=== PATIENT | female | born 1955 | race Caucasian/White ===

== ENCOUNTER → 2017-08-17 11:45 | Outpatient (CLI) | payer OTHER, SELFPAY ==
[2017-08-17 12:41] LABS: Absolute Lymphocyte Count 1.69 X10^3/ul (0.83-4.51); Absolute Neutrophil Count 2.6 X10^3/uL (2.0-7.7); Basophil# 0.05 X10^3/uL; Eosinophil# 0.15 X10^3/uL; Hematocrit 38.4 % (37-47); Hemoglobin 12.9 g/dl (12.0-15.0); Lymphocyte # 1.69 X10^3/ul (4.0); Lymphocyte % 33.9 % (19-41); Mean Corp Hgb Conc 33.6 g/gl (32-36); Mean Corpuscular Hgb 30.5 pg (27.0-32.0); Mean Corpuscular Volume 90.8 fL (81-99); Mean Platelet Vol. 11.2 fl (6.2-12.0); Monocyte# 0.45 X10^3/uL; Neutrophil # 2.64 X10^3/uL (2.7-7.7); Neutrophil % 53.1 % (47-70); Platelet Count 193 K/mm3 (150-450); RBC Distribution Width CV 13.9 % (11.6-14.6); RBC Distribution Width SD 45.6 fl (35.1-43.9); Red Blood Count 4.23 M/mm3 (4.2-5.4)
[2017-08-17 12:42] LABS: POSITIVE COUNT NO; POSITIVE DIFFERENTIAL NO; POSITIVE MORPHOLOGY NO
[2017-08-17 13:10] LABS: ALB/GLOB Ratio 1.1 RATIO (0.9-2.4); AST(SGOT) 22 U/L (15-37); Alanine Aminotransfer ALT/SGPT 27 U/L (13-56); Albumin, Serum 3.9 g/dL (3.2-5.0); Alkaline Phosphatase 80 U/L (45-117); Anion Gap 6 (5-15); BUN 13 mg/dL (7-18); BUN/Creat Ratio 17.1 RATIO (10-20); Calcium,Total 8.9 mg/dL (8.5-10.1); Chloride 103 mmol/L (98-107); Cholesterol 220 mg/dL (200); Creatinine, Serum 0.76 mg/dL (0.55-1.02); EST Glomerular Filtration Rate 81 mL/min (>60); Est Glom Filt Rate - Afr Amer 99 mL/min (>60); Globulin 3.4 g/dL (2.2-4.2); Glucose 101 mg/dL (74-106); High Density Lipoprotein 89 mg/dL; Protein, Total 7.3 g/dL (6.4-8.2); Sodium Level 138 mmol/L (136-145); Triglycerides 64 mg/dL; Very Low Density Lipoprotein 13 mg/dL (5-40)
== END ==
PROVIDERS: Family Provider Family Medicine; PCP Family Medicine; Visit Provider Family Medicine
DX: E78.5 Hyperlipidemia, unspecified (principal)
CPT/HCPCS: 36415; 80053; 80061; 85025

== ENCOUNTER → 2018-06-02 12:01 | Outpatient (CLI) | payer OTHER, SELFPAY ==
--- NOTE | 2018-06-02 12:06 | RAD_ITS ---
STUDY: X-RAY CHEST REASON FOR EXAM: Female, 62 years old. Cough, fever, cold like symptoms x1 week. TECHNIQUE: PA and lateral views of the chest. COMPARISON: None. FINDINGS: There is ill-defined consolidated pneumonic infiltrate in the lingula of left upper lobe. Possible slight crowding in the medial right lung base. There is no demonstrated pleural abnormality. Normal size heart. Normal mediastinum and heron. Normal visualized pulmonary arteries. There is minor atherosclerotic calcification of the aortic arch. There are early degenerative changes of the head thoracic spine. Normal visualized ribs, clavicles, and shoulders. There is no demonstrated abnormality of the visualized soft tissue structures of the upper abdomen. RAD/Chest PA and Lateral IMPRESSION: Lingular pneumonic infiltrate. Electronically Signed: Eleuterio Matamoros, at 12:53 EST , Service support ,
[2018-06-02 14:13] LABS: Absolute Lymphocyte Count 0.96 X10^3/ul (0.83-4.51); Absolute Neutrophil Count 5.2 X10^3/uL (2.0-7.7); Basophil# 0.02 X10^3/uL; Basophil% 0.3 % (0-1); Eosinophil# 0.02 X10^3/uL; Eosinophils% 0.3 % (0-5); Hematocrit 36.6 % (37-47); Hemoglobin 11.7 g/dl (12.0-15.0); Lymphocyte # 0.96 X10^3/ul (4.0); Lymphocyte % 14.3 % (19-41); Mean Corpuscular Hgb 28.8 pg (27.0-32.0); Mean Corpuscular Volume 90.1 fL (81-99); Mean Platelet Vol. 11.3 fl (6.2-12.0); Monocyte# 0.55 X10^3/uL; Monocyte% 8.2 % (0-10); Neutrophil # 5.17 X10^3/uL (2.7-7.7); Neutrophil % 76.8 % (47-70); Platelet Count 203 K/mm3 (150-450); RBC Distribution Width SD 42.6 fl (35.1-43.9); Red Blood Count 4.06 M/mm3 (4.2-5.4); White Blood Count 6.7 K/mm3 (4.4-11.0)
[2018-06-02 14:14] LABS: POSITIVE COUNT NO; POSITIVE DIFFERENTIAL NO; POSITIVE MORPHOLOGY NO
== END ==
PROVIDERS: Family Provider Family Medicine; PCP Family Medicine; Referring Provider Family Medicine; Visit Provider Family Medicine
DX: R05 Cough (principal)
CPT/HCPCS: 36415; 71046; 85025

== ENCOUNTER → 2018-10-13 09:34 | Outpatient (CLI) | payer MEDICARE, BC, SELFPAY ==
[2018-10-13 12:14] LABS: Absolute Lymphocyte Count 1.61 X10^3/ul (0.83-4.51); Absolute Neutrophil Count 3.1 X10^3/uL (2.0-7.7); Basophil# 0.03 X10^3/uL; Basophil% 0.6 % (0-1); Eosinophil# 0.08 X10^3/uL; Eosinophils% 1.5 % (0-5); Hematocrit 40.4 % (37-47); Hemoglobin 13.1 g/dl (12.0-15.0); Lymphocyte # 1.61 X10^3/ul (4.0); Lymphocyte % 30.6 % (19-41); Mean Corp Hgb Conc 32.4 g/gl (32-36); Mean Corpuscular Volume 89.6 fL (81-99); Mean Platelet Vol. 11.8 fl (6.2-12.0); Monocyte# 0.44 X10^3/uL; Monocyte% 8.4 % (0-10); Neutrophil % 58.9 % (47-70); Platelet Count 201 K/mm3 (150-450); RBC Distribution Width CV 13.9 % (11.6-14.6); RBC Distribution Width SD 45.2 fl (35.1-43.9); Red Blood Count 4.51 M/mm3 (4.2-5.4); White Blood Count 5.3 K/mm3 (4.4-11.0)
[2018-10-13 12:18] LABS: POSITIVE COUNT NO; POSITIVE DIFFERENTIAL NO; POSITIVE MORPHOLOGY NO
[2018-10-13 12:46] LABS: AST(SGOT) 18 U/L (15-37); Alanine Aminotransfer ALT/SGPT 29 U/L (13-56); Albumin, Serum 3.8 g/dL (3.2-5.0); Alkaline Phosphatase 101 U/L (45-117); Anion Gap 8 (5-15); BUN 13 mg/dL (7-18); BUN/Creat Ratio 15.6 RATIO (10-20); CRP 8.85 mg/L (0.0-3.0); Calcium,Total 9.2 mg/dL (8.5-10.1); Chloride 103 mmol/L (98-107); Cholesterol 193 mg/dL (200); Creatinine, Serum 0.84 mg/dL (0.55-1.02); EST Glomerular Filtration Rate 73 mL/min (>60); Est Glom Filt Rate - Afr Amer 88 mL/min (>60); Ferritin 52 ng/mL (8-252); Globulin 3.9 g/dL (2.2-4.2); Glucose 112 mg/dL (74-106); High Density Lipoprotein 73 mg/dL; Iron 59 ug/dL (50-170); Potassium 4.2 mmol/L (3.5-5.1); Protein, Total 7.7 g/dL (6.4-8.2); Rheumatoid Factor < 10.0 IU/mL (<15); Sodium Level 138 mmol/L (136-145); T4 Free Direct 1.03 ng/dL (0.76-1.46); Thyroid Stim Hormone (TSH) 1.47 uIU/mL (0.358-3.74); Triglycerides 76 mg/dL; Very Low Density Lipoprotein 15 mg/dL (5-40)
[2018-10-13 12:50] LABS: Erythrocyte Sedimentation Rate 28 mm/hr (0-30)
[2018-10-13 12:52] LABS: Vitamin B12 463 pg/mL (211-911)
[2018-10-14 09:34] LABS: Hemoglobin A1c 6.2 % (4.2-6.3)
[2018-10-14 17:16] LABS: ANTINUCLEAR ANTIBODIES DIRECT Positive (Negative); Anti-Centromere B Ab 1.9 AI (0.0-0.9); Anti-Chromatin <0.2 AI (0.0-0.9); Anti-Jo <0.2 AI (0.0-0.9); Anti-Scleroderma-70 AB <0.2 AI (0.0-0.9); RNP Ab <0.2 AI (0.0-0.9); SJOGREN'S Anti-SS-A test < 0.2 AI (0.0-0.9); SJOGREN'S Anti-SS-B test < 0.2 AI (0.0-0.9); Smith Ab <0.2 AI (0.0-0.9)
[2018-10-18 12:49] LABS: Anti-dsDNA Ab 7 IU/mL (0-9)
[2018-10-18 12:51] LABS: CCP IgG Antibodies 5 units (0-19)
== END ==
PROVIDERS: Family Provider Family Medicine; PCP Family Medicine; Visit Provider Family Medicine
DX: R06.09 Other forms of dyspnea (principal); R05 Cough; M25.50 Pain in unspecified joint; E78.5 Hyperlipidemia, unspecified; I49.9 Cardiac arrhythmia, unspecified; R53.83 Other fatigue; D64.9 Anemia, unspecified
CPT/HCPCS: 36415; 80053; 80061; 82607; 82728; 83036; 83540; 84439; 84443; 85025; 85652; 86038; 86140; 86200; 86225; 86235; 86431

== ENCOUNTER → 2018-10-16 08:45 | Outpatient (CLI) | payer MEDICARE, BC, SELFPAY ==
--- NOTE | 2018-10-16 09:08 | CT_ITS ---
STUDY: LOW DOSE CT LUNG CANCER SCREENING REASON FOR EXAM: Female, 63 years old. 35 pack year smoker quit 2 years ago. RADIATION DOSAGE (If Supplied By Facility): CTDIvol = ( 2.01 ) mGy, DLP = ( 68.71 ) mGycm TECHNIQUE: No contrast was administered. Low dose technique was utilized (average mAS-38 and kVp 120). 1.25 mm axial source images with a slice interval of 1.25-mm were reconstructed in lung windows. 2.5 mm axial source images with a slice interval of 2.5-mm were reconstructed in lung windows. 5.0 mm axial source images with a slice interval of 5.0-mm were reconstructed in soft tissue windows. Nodule measured using lung windows on PACS and/or independent workstation with automated measurement of minimum and maximum diameter. Nodule measurement reported as average diameter rounded to the nearest whole number. Growth is defined as an increase ins size of greater than 1.5 mm. COMPARISON: Chest, June 02, 2018. NODULES: Nodule #: 1 Density: Solid Lung location: Right upper lobe: 1.2 cm from pleura Location in series: Series Number: 2 Image: 54 Size - D1 x D2 mm: 2 x 2 mm: 2 mm average diameter Margin: Smooth Shape: Rounded Calcification: Yes Fat: No Temporal comparison: None Nodule #: 2 Density: Ground glass Lung location: Right upper lobe: 1.1 cm from pleura Location in series: Series Number: 2 Image: 84 Size - D1 x D2 mm: 3 x 3 mm: 3 mm average diameter Margin: Ill-defined Shape: Round Calcification: No Fat: No Temporal comparison: None Nodule #: 3 Density: Solid Lung location: Left upper lobe: 2.4 cm from pleura Location in series: Series Number: 2 Image: 89 Size - D1 x D2 mm: 3 x 3 mm: Normal average diameter Margin: Smooth Shape: Rounded Calcification: No Fat: No Temporal comparison: None Nodule #: 4 Density: Solid Lung location: Left lower lobe: 0.2 cm from pleura Location in series: Series Number: 2 Image: 131 Size - D1 x D2 mm: 5 x 3 mm: 4 mm average diameter Margin: Smooth Shape: Oval Calcification: No Fat: No Temporal comparison: None Total lung nodules (excluding granulomas): 3 Emphysema: Minimal emphysematous changes lungs. There is bandlike atelectasis in the left upper lobe and lingula. Endobronchial lesion: 1 Aorta: Atherosclerotic changes of the thoracic aorta without aneurysm. Coronary arteries: None Heart: Normal Pulmonary artery: Normal Mediastinal nodes: Nonspecific subcentimeter mediastinal lymphadenopathy. Other chest and abdominal findings: There are degenerative changes of the lower thoracic spine. CT/Low Dose CT Lung Screening IMPRESSION: Lung-RADS category 2 - Continue annual screening with LDCT in 12 months. IMPORTANT NOTES FOR USE: ACR Lung-RADS Version 1.0 Assessment Categories Release Date: August 01, 2013 Category: Coded 0-4 bases on nodule(s) with highest degree of suspicion. Negative screen is defined as categories 1 and 2; a positive screen is defined as categories 3 and 4. Category 3 and 4A nodules that are unchanged on interval CT should be coded as category 2, and individuals returned to screening in 12 months. Category 4X: Category 3 or 4 nodules with additional imaging findings that increase the suspicion of lung cancer, such as spiculation, GGN that doubles in size in 1 year, enlarged lymph notes, etc. Category Modifiers: S (significant finding unrelated to lung cancer) and C (prior history of treated lung cancer) may be added to the 0-4 Lung-RADS Electronically Signed: Carlitos Augustin DO at 18:20 EDT Tel [phone], Service support ,
== END ==
PROVIDERS: Family Provider Family Medicine; PCP Family Medicine; Referring Provider Family Medicine
DX: Z87.891 Personal history of nicotine dependence (principal); Z12.2 Encounter for screening for malignant neoplasm of respiratory organs
CPT/HCPCS: G0297

== ENCOUNTER → 2020-03-13 17:35 | Outpatient (CLI) | payer MEDICARE, BC, SELFPAY | PROVIDERS: PCP Family Medicine; Referring Provider Family Medicine; Visit Provider Family Medicine | DX: U07.1 COVID-19 (principal) | CPT/HCPCS: 87635; C9803; U0003 ==

== ENCOUNTER → 2020-07-24 11:32 | Outpatient (CLI) | payer MEDICARE, BC, SELFPAY ==
[2020-07-24 15:49] LABS: Absolute Lymphocyte Count 1.27 X10^3/uL (0.83-4.51); Absolute Neutrophil Count 4.2 X10^3/uL (2.0-7.7); Basophil# 0.05 X10^3/uL; Basophil% 0.8 % (0-1); Eosinophil# 0.09 X10^3/uL; Eosinophils% 1.5 % (0-5); Hematocrit 40.2 % (37-47); Hemoglobin 12.7 g/dL (12.0-15.0); Lymphocyte # 1.27 X10^3/ul (0.83-4.51); Mean Corp Hgb Conc 31.6 g/dL (32-36); Mean Corpuscular Hgb 28.9 pg (27.0-32.0); Mean Corpuscular Volume 91.6 fL (81-99); Monocyte# 0.45 X10^3/uL; Monocyte% 7.4 % (0-10); NRBC Flagged by Analyzer 0 % (0-5); Neutrophil # 4.18 X10^3/uL (2.7-7.7); Platelet Count 210 K/mm3 (150-450); RBC Distribution Width CV 14.6 % (11.6-14.6); RBC Distribution Width SD 48.8 fl (35.1-43.9); Red Blood Count 4.39 M/mm3 (4.2-5.4); White Blood Count 6.1 K/mm3 (4.4-11.0)
[2020-07-24 16:05] LABS: Erythrocyte Sedimentation Rate 36 mm/hr (0-30)
[2020-07-24 16:37] LABS: ALB/GLOB Ratio 1.1 RATIO (0.9-2.4); AST(SGOT) 20 U/L (15-37); Alanine Aminotransfer ALT/SGPT 36 U/L (13-56); Albumin, Serum 3.9 g/dL (3.2-5.0); Alkaline Phosphatase 113 U/L (45-117); Anion Gap 5 (5-15); BUN 10 mg/dL (7-18); BUN/Creat Ratio 13.7 RATIO (10-20); CRP 9.13 mg/L (0.0-3.0); Calcium,Total 9.3 mg/dL (8.5-10.1); Chloride 103 mmol/L (98-107); Creatinine, Serum 0.73 mg/dL (0.55-1.02); EST Glomerular Filtration Rate 85 mL/min (>60); Est Glom Filt Rate - Afr Amer 102 mL/min (>60); Globulin 3.6 g/dL (2.2-4.2); Glucose 100 mg/dL (74-106); Protein, Total 7.5 g/dL (6.4-8.2); Rheumatoid Factor < 10.0 IU/mL (<15); Sodium Level 137 mmol/L (136-145); T4 Free Direct 1.26 ng/dL (0.76-1.46)
[2020-07-26 16:09] LABS: ANTINUCLEAR ANTIBODIES DIRECT Positive (Negative); Anti-Centromere B Ab 2.1 AI (0.0-0.9); Anti-Chromatin <0.2 AI (0.0-0.9); Anti-Jo <0.2 AI (0.0-0.9); Anti-Scleroderma-70 AB <0.2 AI (0.0-0.9); RNP Ab <0.2 AI (0.0-0.9); SJOGREN'S Anti-SS-A test < 0.2 AI (0.0-0.9); SJOGREN'S Anti-SS-B test < 0.2 AI (0.0-0.9); Smith Ab <0.2 AI (0.0-0.9)
[2020-07-26 18:37] LABS: Anti-dsDNA Ab 3 IU/mL (0-9)
[2020-07-27 09:14] LABS: CCP IgG Antibodies 1 units (0-19)
== END ==
PROVIDERS: PCP Family Medicine; Referring Provider Family Medicine; Visit Provider Family Medicine
DX: R00.2 Palpitations (principal); I49.3 Ventricular premature depolarization; R06.09 Other forms of dyspnea; M25.50 Pain in unspecified joint; R76.8 Other specified abnormal immunological findings in serum; I10 Essential (primary) hypertension; R73.03 Prediabetes
CPT/HCPCS: 36415; 80053; 82533; 83036; 84439; 84443; 85025; 85652; 86038; 86140; 86200; 86225; 86235; 86431

== ENCOUNTER → 2020-07-31 10:55 | Outpatient (CLI) | payer MEDICARE, BC, SELFPAY | PROVIDERS: PCP Family Medicine; Referring Provider Family Medicine; Visit Provider Family Medicine | DX: R00.2 Palpitations (principal) | CPT/HCPCS: 93225; 93226 ==

== ENCOUNTER → 2020-08-14 08:08 | Outpatient (CLI) | payer MEDICARE, BC, SELFPAY ==
--- NOTE | 2020-08-14 14:36 | PFTCOMP ---
COMPLETE PULMONARY FUNCTION TEST INTERPRETATION Brief HPI: Patient is a 65 year old female, currently under the care of Dr. Mills, who presents to [facility] for complete pulmonary function tests secondary to diagnosis of dyspnea. Respiratory therapist reports good effort and reproducible results. Interpretation: Forced expiration spirometry shows a moderately severe large airways obstructive ventilatory defect with an FEV1 of 53% predicted. There is a significant bronchodilator response in FVC and FEV1 by strict ATS criteria. Spirograms are of good quality and plateau slowly, indicating slowly emptying areas of the lungs. The respiratory flow volume loop shows decreased expiratory flow rates at all lung volumes consistent with airway obstruction. Lung volumes by body plethysmography show a normal total lung capacity at 4.07 L, 101% predicted. FRC and RV are elevated out of proportion. Lung volume measurements are consistent with air-trapping. Diffusion capacity by carbon monoxide is decreased at 43% predicted. The airway resistance is elevated. No previous pulmonary function tests were available for review. Impression: Partial reversible moderately severe large airways obstructive ventilatory defect, with a symmetric reduction in diffusion capacity, in a pattern consistent with COPD/asthma overlap syndrome
== END ==
PROVIDERS: PCP Family Medicine; Referring Provider Family Medicine; Visit Provider Family Medicine
DX: R06.00 Dyspnea, unspecified (principal)
CPT/HCPCS: 94060; 94726; 94729

== ENCOUNTER → 2021-01-25 13:55 | Outpatient (CLI) | payer MEDICARE, BC, SELFPAY ==
--- NOTE | 2021-01-25 13:57 | ECHOCS_ITS ---
Reason For Study: PHTN Procedure This was a 2D Doppler, Color Flow transthoracic echocardiogram. The study was technically difficult. Contrast injection was performed. Exam performed in department. Left Ventricle Normal LV size. Left ventricular systolic function is normal. The estimated ejection fraction is 55 %. Stage 1 diastolic dysfunction. No regional wall motion abnormalities noted. Right Ventricle Normal RV size. Normal systolic function. Atria Normal left atrium. Normal right atrium. Mitral Valve Normal mitral valve. Mild (1+) eccentric mitral valve insufficiency. Tricuspid Valve Normal tricuspid valve. Unable to estimate RV systolic pressure due to inadequate jet, pulmonary artery pressure probably normal. Pulmonic Valve Normal pulmonic valve. Great Vessels Normal aortic root. The pulmonary artery is normal size. Normal inferior vena cava. Pericardium/Pleural No pericardial effusion. Medication 22 gauge I.V. with prn adaptor inserted into left arm. Diluted definity 5ml given slow IV push to enhance endocardial definition. MMode/2D Measurements & Calculations LVIDd: 4.8 cm IVSd: 0.98 cm LA dimension: 3.7 cm LVIDs: 2.9 cm LVPWd: 0.75 cm FS: 38.7 % LAV(MOD-bp): 52.0 ml LA A4 area: 18.2 cm2 RA A4 area: 14.8 cm2 LAV(MOD-bp) Indexed: 29.5 ml/m2 LAV(MOD-sp2): 49.4 ml LAV(MOD-sp4): 52.4 ml Time Measurements MV dec time: 0.21 sec Doppler Measurements & Calculations MV E max osvaldo: 100.8 cm/sec Lat Peak E' Osvaldo: 6.5 cm/sec Med Peak E' Osvaldo: 7.0 cm/sec MV A max osvaldo: 99.3 cm/sec E/E' lat: 15.5 E/E' med: 14.3 MV E/A: 1.0 MV V2 max: 93.4 cm/sec MV P1/2t max osvaldo: 91.5 cm/sec Ao V2 max: 157.9 cm/sec MV max P.5 mmHg MV P1/2t: 56.5 msec Ao max P.0 mmHg MV V2 mean: 51.8 cm/sec MV dec slope: 474.0 cm/sec2 MV mean P.3 mmHg MVA(P1/2t): 3.9 cm2 MV V2 VTI: 34.7 cm LV V1 max: 100.8 cm/sec PA V2 max: 94.9 cm/sec LV V1 max P.1 mmHg ECHO/Echo Complete W/ Contrast Interpretation Summary Normal LV size. Left ventricular systolic function is normal. The estimated ejection fraction is 55 %. Stage 1 diastolic dysfunction. Ordering Physician: Darci Mantilla Referring Physician: Eladio Mills Performed By: Costa Casillas RCS
== END ==
PROVIDERS: PCP Family Medicine; Referring Provider Internal Medicine Critical Care Medicine; Visit Provider Internal Medicine Critical Care Medicine
DX: I27.21 Secondary pulmonary arterial hypertension (principal); J44.9 Chronic obstructive pulmonary disease, unspecified; I34.0 Nonrheumatic mitral (valve) insufficiency
CPT/HCPCS: 93306; Q9957; A4216; C8929; J3490

== ENCOUNTER → 2021-02-25 20:00 | Outpatient (CLI) | payer MEDICARE, BC, SELFPAY | PROVIDERS: PCP Family Medicine; Visit Provider Internal Medicine Critical Care Medicine | DX: G47.10 Hypersomnia, unspecified (principal) | CPT/HCPCS: 95810 ==

== ENCOUNTER 2021-05-20 07:45 | Outpatient (CLI) | payer MEDICARE, BC, SELFPAY ==
--- NOTE | 2021-05-20 07:48 | CT_ITS ---
STUDY: LOW DOSE CT LUNG CANCER SCREENING REASON FOR EXAM: Female, 65 years old. Smoker and gt; 40 pack years quit 2017 RADIATION DOSAGE (If Supplied By Facility): CTDIvol = ( 2.39 ) mGy, DLP = ( 81.01 ) mGycm TECHNIQUE: No contrast was administered. Low dose technique was utilized (average mAS-38 and kVp 120). 1.25 mm axial source images with a slice interval of 1.25-mm were reconstructed in lung windows. 2.5 mm axial source images with a slice interval of 2.5-mm were reconstructed in lung windows. 5.0 mm axial source images with a slice interval of 5.0-mm were reconstructed in soft tissue windows. Nodule measured using lung windows on PACS and/or independent workstation with automated measurement of minimum and maximum diameter. Nodule measurement reported as average diameter rounded to the nearest whole number. Growth is defined as an increase ins size of greater than 1.5 mm. COMPARISON: Comparison is made with prior study dated 10/16/2018. NODULES: Stable 2 mm calcified granuloma in the posterior medial segment of the right upper lobe as seen on axial image #56. Emphysema: Emphysematous changes. The previously seen infiltrate in the lingular segment of the left upper lobe has almost completely resolved. Mild residual linear scarring persists. Endobronchial lesion: None Aorta: Atherosclerotic calcifications aortic arch. Coronary arteries: Mild coronary artery calcification. Heart: Unremarkable Pulmonary artery: Unremarkable Mediastinal nodes: Small mediastinal lymph nodes. Other chest and abdominal findings: CT/Low Dose CT Lung Screening IMPRESSION: Lung-RADS category 2 - Continue annual screening with LDCT in 12 months. IMPORTANT NOTES FOR USE: ACR Lung-RADS Version 1.1 Assessment Categories Release Date: 2018 Category: Coded 0-4 bases on nodule(s) with highest degree of suspicion. Negative screen is defined as categories 1 and 2; a positive screen is defined as categories 3 and 4. Category 3 and 4A nodules that are unchanged on interval CT should be coded as category 2, and individuals returned to screening in 12 months. Category 4X: Category 3 or 4 nodules with additional imaging findings that increase the suspicion of lung cancer, such as spiculation, GGN that doubles in size in 1 year, enlarged lymph notes, etc. Category Modifiers: S (significant finding unrelated to lung cancer) Electronically Signed: Nahum King MD at 12:25 EST ,
== END 2021-05-20 23:59 | disposition home or self-care (01) ==
LOC: CT 07:48
PROVIDERS: PCP Family Medicine; Referring Provider Nurse Practitioner Acute Care; Visit Provider Nurse Practitioner Acute Care
DX: F17.210 Nicotine dependence, cigarettes, uncomplicated (principal)
CPT/HCPCS: 71271

== ENCOUNTER 2021-06-27 20:00 | Outpatient (CLI) | payer MEDICARE, BC, SELFPAY ==
[2021-06-27] MEDS: Zolpidem Tartrate 5 MG Tablet PO (21:40)
== END 2021-06-27 23:59 | disposition home or self-care (01) ==
PROVIDERS: PCP Family Medicine; Visit Provider Nurse Practitioner Acute Care
DX: G47.33 Obstructive sleep apnea (adult) (pediatric) (principal)
CPT/HCPCS: 95811

== ENCOUNTER → 2023-05-04 | Outpatient (CLI) | payer MEDICARE, BC, SELFPAY ==
--- NOTE | 2023-05-04 12:50 | CT_ITS ---
STUDY: LOW DOSE CT LUNG CANCER SCREENING REASON FOR EXAM: Female, 67 years old. Former smoker. Patient smoked 1.5 packs per day for 30 years. RADIATION DOSAGE (If Supplied By Facility): CTDIvol = ( 2.01 ) mGy, DLP = ( 70.97 ) mGycm TECHNIQUE: No contrast was administered. Low dose technique was utilized (average mAS-38 and kVp 120). 1.25 mm axial source images with a slice interval of 1.25-mm were reconstructed in lung windows. 2.5 mm axial source images with a slice interval of 2.5-mm were reconstructed in lung windows. 5.0 mm axial source images with a slice interval of 5.0-mm were reconstructed in soft tissue windows. COMPARISON: Comparison is made with prior study dated May 20, 2021 and October 16, 2018. NODULES: Stable 2 mm calcified granuloma in the posteromedial segment of the right upper lobe. Emphysema: Hyperinflation. Stable emphysematous changes. Endobronchial lesion: Unremarkable Aorta: Atherosclerotic plaque formation of the aortic arch. CORONARY ARTERIES: Coronary artery calcification is seen. Heart: Unremarkable Pulmonary artery: Unremarkable Mediastinal nodes: Small mediastinal lymph nodes. Other chest and abdominal findings: CT/Low Dose CT Lung Screening IMPRESSION: Lung-RADS category 2 - Continue annual screening with LDCT in 12 months. IMPORTANT NOTES FOR USE: ACR Lung-RADS Version 1.1 Assessment Categories Release Date: 2018 Category: Coded 0-4 bases on nodule(s) with highest degree of suspicion. Negative screen is defined as categories 1 and 2; a positive screen is defined as categories 3 and 4. Category 3 and 4A nodules that are unchanged on interval CT should be coded as category 2, and individuals returned to screening in 12 months. Category 4X: Category 3 or 4 nodules with additional imaging findings that increase the suspicion of lung cancer, such as spiculation, GGN that doubles in size in 1 year, enlarged lymph notes, etc. Category Modifiers: S (significant finding unrelated to lung cancer) Electronically Signed: Nahum King MD at 15:04 EST ,
--- OUTSIDE RECORDS SUMMARY | 2023-05-04 13:21 | XMS RPT_ITS | CCD ---
Author Name Unknown Address [address] [place] [address] [address] [place] [id number] Organization [facility] Progress note 04-11-2021 Note Date & Type Note Facility 04-11-2021 Note HNO ID: [id number] Author: Silvino Kirk MA Service: ? 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 Encounter closed. Contact made with patient or family member? NO Pt identified by name and : NO Outreach Outcome/Action Unable to reach patient: Left message Reason for Outreach Attribution: Provider Off-boarding Payer: Payor: [employer] / Plan: BLUE CARD PPO OOS / Product Type: PPO / Care Gap Reviewed:: Breast Cancer screening Colorectal Cancer Screening Flu vaccine Reminder: Reminder note to check Health Maintenance for items below Health Maintenance items due: COVID-19 VACCINE(1) Never done DEPRESSION SCREENING Never done HEPATITIS C SCREENING Never done DTAP,TDAP,TD(1 - Tdap) Never done SHINGRIX VACCINE(1 of 2) Never done MAMMOGRAM due on 07/21/2017 COLORECTAL CANCER SCREENING due on 08/04/2017 BONE DENSITY Never done ADVANCE DIRECTIVE DISCUSSION Never done DIABETES SCREEN due on 08/20/2019 INFLUENZA(1) due on 12/05/2020 Silvino Kirk MA April 11, 2021 3:41 PM [facility] Clinical Note 04-10-2021 Note Date & Type Note Facility 04-10-2021 Note Patient Outreach (ETHAN TNAV) CLINT MCGREGOR ([id number]) 1955 F Date Time Provider Department 04/10/21 SILVINO KIRK During your visit today, we recorded the following information about you: Silvino Kirk MA 04/11/2021 3:43 PM Signed POPULATION HEALTH NAVIGATION OUTREACH Action/FYI PCP OFF BOARDING OUTREACH Attempt # 1 LMOVM No Mychart. Encounter closed. Contact made with patient or family member? NO Pt identified by name and : NO Outreach Outcome/Action Unable to reach patient: Left message Reason for Outreach Attribution: Provider Off-boarding Payer: Payor: [employer] / Plan: BLUE CARD PPO OOS / Product Type: PPO / Care Gap Reviewed:: Breast Cancer screening Colorectal Cancer Screening Flu vaccine Reminder: Reminder note to check Health Maintenance for items below Health Maintenance items due: COVID-19 VACCINE(1) Never done DEPRESSION SCREENING Never done HEPATITIS C SCREENING Never done DTAP,TDAP,TD(1 - Tdap) Never done SHINGRIX VACCINE(1 of 2) Never done MAMMOGRAM due on 07/21/2017 COLORECTAL CANCER SCREENING due on 08/04/2017 BONE DENSITY Never done ADVANCE DIRECTIVE DISCUSSION Never done DIABETES SCREEN due on 08/20/2019 INFLUENZA(1) due on 12/05/2020 Silvino Kirk MA April 11, 2021 3:41 PM Allergies As of Date: 04/10/2021 Noted Allergy Reaction environmental [Other] 12/11/2005 Date Reviewed: 07/14/2016 Reviewed by: Yuli Peraza LPN - Fully Assessed Reason for Visit: Population Health Navigation Outreach [3910] Cmt: Offboarding - Dr Suellen KENDRICK Prescriptions as of 04/18/2021 - atorvastatin (LIPITOR) 20 mg tablet TAKE 1 TABLET BY MOUTH ONCE DAILY. - loratadine (CLARITIN) 10 mg tablet Take 10 mg by mouth once daily. - MULTIVITAMIN TAB Take one(1) tablet daily. - ALEVE 220 MG TAB prn for pain Problem List As Of Date 04/10/2021 Noted Resolved Hyperlipidemia with target LDL less than 100 [E*06/09/2012 Lateral collateral ligament sprain of knee [S83*06/09/2012 Allergic sinusitis [J30.9] 06/09/2012 Pain in joint, lower leg [M25.569] 06/10/2012 Tobacco dependence [F17.200] 08/31/2013 Impaired fasting glucose [R73.01] 08/21/2016 Encounter Status:Closed by SILVINO KIRK on 04/11/21 [facility] Summary Purpose Family History No Family History Records Found Advance Directives No Advanced Directives Records Found Additional Source Comments INFORMATION SOURCE (unrecogn ized section and content) FOR RECORDS PERTAINING TO PATIENTS WHO ARE OR HAVE BEEN ENROLLED IN A CHEMICAL DEPENDENCY/SUBSTANCEABUSE PROGRAM, SOME INFORMATION MAY BE OMITTED. This clinical summary was aggregated from multiple sources. Caution should be exercised in using it in the provision of clinical care. This summary normalizes information from multiple sources, and as a consequence, information in this document may materially change the coding, format and clinical context of patient data. In addition, data may be omitted in some cases. CLINICAL DECISIONS SHOULD BE BASED ON THE PRIMARY CLINICAL RECORDS. [employer] provides no warranty or guarantee of the accuracy or completeness of information in this document.
== END | disposition home or self-care (01) ==
LOC: CT 12:50
PROVIDERS: PCP Family Medicine; Referring Provider Nurse Practitioner Acute Care; Visit Provider Nurse Practitioner Acute Care
DX: F17.210 Nicotine dependence, cigarettes, uncomplicated (principal)
CPT/HCPCS: 71271

== ENCOUNTER → 2024-05-05 | Outpatient (CLI) | payer MEDICARE, BC, SELFPAY ==
--- NOTE | 2024-05-05 12:53 | CT_ITS ---
PROCEDURE: LOW DOSE CT LUNG SCREENING REASON FOR EXAM: Former smoker. Patient has smoked 2 packs per day for 40 years. COPD. TECHNIQUE: Low Dose CT Lung Screening without contrast COMPARISON: Comparison is made with prior examination dated May 04, 2023. FINDINGS: PULMONARY NODULES: (Only nodules >6mm are reported) Nodules described below are on series 1 unless otherwise specified. Pulmonary Nodules: No concerning pulmonary nodules. Stable right upper lobe calcified granuloma. Hardware:None Lymph Nodes:Small mediastinal lymph nodes. Heart and Vasculature:Normal heart size. No pericardial effusion.Thoracic aorta and pulmonary arteries have normal contours; noncontrast technique limits evaluation. Atherosclerotic plaque formation of the aortic arch. Coronary Artery Calcifications: Present Lungs and Airways: Mild emphysematous changes are present. Hyperinflation. Pleura:No pleural effusion. No pneumothorax. Upper Abdomen:Visualized portions of the upper abdominal viscera are unremarkable. Bones:Degenerative changes of the thoracic spine. CT/Low Dose CT Lung Screening IMPRESSION: 1. BASED ON THE ACR LUNG RADS FOR THE MOST SUSPICIOUS NODULE (IF ANY) DESCRIBE D IN THIS REPORT, THE OVERALL LUNG RADS SCORE IS 1. 1 - NEGATIVE. RECOMMEND 12-MONTH SCREENING LDCT.. 2. SMOKING CESSATION COUNSELING IS RECOMMENDED IF THE PATIENT IS STILL SMOKING . 3. OTHER SIGNIFICANT FINDINGSNone. One or more dose reduction techniques were used (e.g., Automated exposure contr ol, adjustment of the mA and/or kV according to patient size, use of iterative reconstruction technique). The following information is provided for reference:Lung-RADS 2021 Assessment C ategories. Additional information involving Lung-RADS is available at www.acr.org. 0-INCOMPLETE 1-NEGATIVE:No nodules or definitely benign nodules. Complete, central, popcorn , or centric ring calcifications OR fat containing 2-BENIGN APPEARANCE (based on imaging features or indolent behavior). Juxtaple ural nodule: < 10mm AND solid; smooth margins; oval, entiform, or triangular shape Solid nodule: <6mm at baseline or new< 4mm Part solid Nodule: < 6mm total mean diameter at baseline Nonsolid nodule:(GGN) < 30mm OR >=30mm stable or slowly growing Airway nodule, subsegmental at baseline, new, or stable Category 3 nodule stabl e or decreased in size at 6-month follow-up CT or Category 3 or 4A nodules that resolve on follow-up OR category 4B findings prov en to be benign following diagnotic work up. 3 - Probably Benign (Based on imaging features or behavior) Solid Nodule: >= 6 to <8mm at baseline OR new 4 to <6mm Part-solid nodule: >= 6mm toal mean diam. with solid component <6mm at baseline OR new < 6mm total mean diam. Non-solid nodule: GGN >= 30mm at baseline or new Atypical pulmonary cyst: Growing cystic component (mean diam.) of thick-walled cyst Category 4A nodule stable or decreased in size at 3-month follow-up CT (excl.ai rway). 4A - Suspicious Solid nodule: >=8 to < 15mm at baseline OR growing < 8mm OR new 6 to < 8mm Part solid nodule: >= 6mm total mean diam. w/ solid component >=6mm to < 8mm at baseline OR new or growing < 4mm solid component Airway nodule, segmental or more proximal at baseline or new Atypical pulmonary cyst: Thick-walled OR multilocular at baseline OR becomes mu ltilocular 4B - Very Suspicious Airway nodule, segmental or more proximal, and stable or growing Solid nodule: >= 15mm at baseline OR new or growing >= 8mm Part solid nodule: Solid component >= 8mm OR new or growing >= 4mm solid compon ent Atypical pulmonary cyst: Thick-walled with growing wall thickness/nodularity OR Growing multilocular (mean diam.) OR Multilocular with increased loculation or new/increased opacity Slow-growing solid or part solid nodule w/ growth over multiple screening exams 4X - Very Suspicious Category 3 or 4 nodules with additional features that increase the suspicion fo r lung cancer. S - Clinically Significant or potentially significant findings (non-lung cancer ) Reading Location: [place] [id number]
== END | disposition home or self-care (01) ==
LOC: CT 12:53
PROVIDERS: PCP Family Medicine; Referring Provider Nurse Practitioner Acute Care; Visit Provider Nurse Practitioner Acute Care
DX: F17.210 Nicotine dependence, cigarettes, uncomplicated (principal)
CPT/HCPCS: 71271

== ENCOUNTER 2024-07-09 15:32 | Emergency (ER) | payer MEDICARE, BC, SELFPAY ==
[2024-07-09 15:32] VITALS: BP 141/71; PULSE 87; RESP 15; TEMP 36.6; O2SAT 92; BMI 34.3
[2024-07-09 15:45] VITALS: O2SAT 91
--- NOTE | 2024-07-09 15:48 | EDS_ITS ---
HPI <SATYA Couch - Last Filed: 07/09/24 17:19> History of Present Illness Chief Complaint: Fall Narrative Narrative: Patient presenting today with pain to her left elbow after a mechanical fall occurred this afternoon, she tripped over a curb and hit her left elbow against the ground. She is right-handed. She reports that she also hit her right knee in the process but does not have any pain to her right knee, she is able to ambulate without difficulty. She has a small abrasion to her left elbow and right knee, tetanus is not up-to-date. She otherwise denies any acute complaints. She did not hit her head or lose consciousness. She is on no blood thinners. [facility] <SATYA Couch - Last Filed: 07/09/24 17:19> [facility] Medical History Cataract (lens) fragments in eye following cataract surgery, unspecified eye High cholesterol Cataracts, bilateral Carpal tunnel syndrome Arthritis Seasonal allergies COPD with asthma Polyarthritis Positive MARKOS (antinuclear antibody) Insomnia Anxiety Hyperlipidemia Prediabetes Cardiac dysrhythmia Home Medications ?Medication ?Instructions ?Recorded ?Last Taken ?Type atorvastatin 20 mg tablet 20 mg PO DAILY 01/22/21 Unkn own History meloxicam 15 mg tablet 15 mg PO DAILY 01/22/21 Unkn own History multivitamin 1 tab PO DAILY 01/22/21 Unkn own History metoprolol succinate 50 mg 50 mg PO DAILY 06/10/21 Unk nown History tablet,extended release 24 hr loratadine 10 mg tablet 10 mg PO DAILY 10/14/21 Unkn own History guaifenesin 1,200 mg tablet, 1,200 mg PO Q12H #60 tabs 06/02/23 Unknown Rx extended release 12 hr albuterol sulfate 90 mcg/actuation 2 puff inhalation Q 6H PRN 03/04/24 Unknown Rx aerosol inhaler shortness of breath or wheez ing #8.5 grams fluticasone fur. 100 mcg-umeclid 1 inh inhalation YAYA Y #60 ea 03/04/24 Unknown Rx 62.5 mcg-vilant 25 mcg inhalat.powder (Trelegy Ellipta) montelukast 10 mg tablet 10 mg PO QPM #30 tabs 02/18/ 25 Unknown Rx nabumetone 500 mg tablet 500 mg PO BID PRN 05/24/24 U nknown History Allergy/AdvReac Type Severity Reaction Status Date / Time No Known Allergies Allergy Verified 07/09/24 15:36 Family History Father COPD (chronic obstructive pulmonary disease) Myocardial infarction Depression High cholesterol Mother Macular degeneration COPD (chronic obstructive pulmonary disease) Myocardial infarction Surgical History H/O section History of carpal tunnel surgery History of adenoidectomy History of tonsillectomy Social History Smoking Status: Former smoker quit date: 04/06/16 Tobacco: How many years used: 41 alcohol intake: current alcohol intake frequency: a few times a week Alcohol type: beer ROS <SATYA Couch - Last Filed: 07/09/24 17:19> ROS ED Constitutional Constitutional ED: Denies chills or fever(s) Cardiovascular Cardiovascular: Denies chest pain Respiratory/Chest Respiratory/Chest: Denies dyspnea Gastrointestinal Gastrointestinal: Denies abdominal pain, nausea or vomiting Musculoskeletal Musculoskeletal: Reports arthralgias Integumentary Reports Abrasions Neurologic Neurologic: Denies paresthesias EXAM <SATYA Couch - Last Filed: 07/09/24 17:19> Physical Exam Const Vital Signs: 07/09/24 15:32 07/09/24 15:45 07/09/24 16:15 Temperature 97.9 F Temperature Source Temporal Pulse Rate 87 88 Respiratory Rate 15 18 Respiratory Effort Normal Non-Labored Blood Pressure 141/71 H Blood Pressure Mean 94 Pulse Ox 92 91 92 Oxygen Delivery Method Room Air Room Air Positive well nourished, well developed and no apparent distress General Appearance ED: well developed HEENT Reports normocephalic and head/scalp atraumatic Mouth ED: Yes moist mucous membranes normal Eyes PERRL and EOMs intact bilaterally Neck full ROM and supple Chest Wall inspection of chest normal Resp normal respiratory effort and clear to auscultation bilaterally Cardio regular rate and regular rhythm Back/Spine normal ROM and normal to inspection Extremity normal to inspection and full ROM Extremity Narrative: Full range of motion to the left elbow with minimal pain palpation to the olecranon process. Superficial abrasion to the left elbow, no active bleeding. No joint effusion. Left radial pulse 2+, good cap refill, sensation intact. Right knee has a small superficial abrasion but otherwise no joint effusion, full range of motion to the right knee without any tenderness to palpation. Neuro oriented x3, CN's II-XII intact bilaterally, moves all extremities, no focal motor deficits and no sensory deficits noted Sensorium / Orientation: awake and alert Psych mental status grossly normal and thought process normal Skin Skin Narrative: Aside from abrasions to the left elbow and right knee, no other wounds visualized. Rashes: No rashes noted <Benson Whitfield MD - Last Filed: 07/09/24 17:38> Physical Exam Const Vital Signs: 07/09/24 15:32 07/09/24 15:45 07/09/24 16:15 Temperature 97.9 F Temperature Source Temporal Pulse Rate 87 88 Respiratory Rate 15 18 Respiratory Effort Normal Non-Labored Blood Pressure 141/71 H Blood Pressure Mean 94 Pulse Ox 92 91 92 Oxygen Delivery Method Room Air Room Air MDM <SATYA Couch - Last Filed: 07/09/24 17:19> [facility] Narrative Medical decision making narrative: Patient presenting today after a mechanical fall occurred this afternoon. She tripped over a curb on the sidewalk and hit her left elbow against the ground. She has minimal pain to the left olecranon process with full range of motion to the elbow. X-ray of the elbow will be obtained to assess for fracture. She has an abrasion to her right knee but no pain or joint effusion to the knee, she has full range of motion to the knee. I do not feel that a knee x-ray is indicated. She is able to ambulate without difficulty. Patient given Tylenol for her pain. No head injury occurred to necessitate need for head imaging. X-ray of the left elbow negative for any acute findings. She did desaturate briefly on her pulse ox after being brought back to the room, she does have a history of COPD. She reports that it is not unusual for her to drop below 90 at times especially if she is exerting herself. She insist that she is not feeling short of breath nor has she had any cough, chest pain, or fevers. On repeat exam her O2 saturation is 92% on room air. RICE instructions were discussed for her elbow, her abrasions were cleaned and bandaged. Wound care instructions discussed. Recommended that she follow-up with her PCP in the next 5 to 7 days. She can take Tylenol and ibuprofen as needed for her pain. She will be discharged home in stable condition. Radiography X-Ray: Read by ED Physician Diagnostic Testing: Clinical Impression(s) from Imaging Studies Elbow X-Ray 07/09/24 15:55 IMPRESSION: No acute process detected. Reading Location: [facility] <Benson Whitfield MD - Last Filed: 07/09/24 17:38> [facility] Radiography X-Ray: Read by ED Physician, Read by Radiologist and No Fracture Diagnostic Testing: Clinical Impression(s) from Imaging Studies Elbow X-Ray 07/09/24 15:55 IMPRESSION: No acute process detected. Reading Location: [facility] Treatment and Re-Evaluation Narrative: Dr. Whitfield: I have personally performed a face to face assessment of the patient and have reviewed the ALEENA Note. I performed a substantive portion of the visit including all aspects of the following. My padilla findings include: History is mechanical fall and tripped over a curb and protest, and injured left elbow. Pain worse with movement. Exam is GCS 15. ABCs intact. Positive abrasion left elbow, no active bleeding. Positive extension, flexion, pronation, and supination of left forearm. Radial pulse palpable, left. No crepitance. No shoulder pain, no wrist pain. No pain over radial head. Medical Decision Making: Check x-rays. X-rays interpreted by myself independently of the left elbow shows no evidence of an acute fracture, negative posterior sail sign. I reviewed the radiology report which confirms my independent interpretation. Analgesia, discharge. Other additions or changes: [None] Discharge Plan Triage Chief Complaint: Fall ED Midlevel Provider: Nia Noel ED Provider: Benson Whitfield Dx/Rx/DC Orders Clinical Impression: Contusion of elbow, left, Contusion of knee, right, Abrasion, Fall Instructions: ED Abrasion, ED Contusion, Upper Extremity Prescriptions: No Action multivitamin Tablet 1 tab PO DAILY atorvastatin 20 mg tablet 20 mg PO DAILY meloxicam 15 mg tablet 15 mg PO DAILY metoprolol succinate 50 mg tablet extended release 24 hr 50 mg PO DAILY loratadine 10 mg tablet 10 mg PO DAILY guaifenesin 1,200 mg tablet extended release 12hr 1,200 mg PO Q12H Qty: 60 6RF albuterol sulfate 90 mcg/actuation HFA aerosol inhaler 2 puff inhalation Q6H PRN (Reason: shortness of breath or wheezing) Qty: 8.5 2RF Trelegy Ellipta 100-62.5-25 mcg blister with device 1 inh inhalation DAILY Qty: 60 11RF nabumetone 500 mg tablet 500 mg PO BID PRN montelukast 10 mg tablet 10 mg PO QPM Qty: 30 11RF Primary Care Provider: Eladio Mills Referrals: Eladio Milsl DO [Primary Care Provider] - 5-7 Days Activity Restrictions/Additional Instructions: Follow-up with your PCP and return for any other concerns. Ice your elbow several times daily and alternate Tylenol and ibuprofen as needed for pain. Print Language: Macedonian Disposition Disposition: Home, Self Care Discharge Date/Time: 07/09/24 16:30
[2024-07-09] MEDS: Acetaminophen 325 MG Tablet 650 MG PO (15:51)
[2024-07-09] MEDS: Diphth,Pertuss(Acell),Tet Vac 0.5 ML Vial IM (15:51)
--- NOTE | 2024-07-09 15:55 | RAD_ITS ---
EXAM: Left elbow radiographs, three views CLINICAL HISTORY: Trip and fall. Elbow pain. Initial encounter. COMPARISON: None. TECHNIQUE: AP, frontal and lateral radiographs are obtained of the left elbow FINDINGS: No fracture. Normal joint articulation. RAD/Elbow min 3 Views IMPRESSION: No acute process detected. Reading [facility]
[2024-07-09 16:15] VITALS: PULSE 88; RESP 18; O2SAT 92
== END 2024-07-09 16:30 | disposition home or self-care (01) ==
PROVIDERS: Emergency Provider Emergency Medicine; PCP Family Medicine; Referring Provider Emergency Medicine; Visit Provider Emergency Medicine
DX: S50.02XA Contusion of left elbow, initial encounter (principal); J44.9 Chronic obstructive pulmonary disease, unspecified; S80.211A Abrasion, right knee, initial encounter; E78.00 Pure hypercholesterolemia, unspecified; Z87.891 Personal history of nicotine dependence; S50.312A Abrasion of left elbow, initial encounter; S80.01XA Contusion of right knee, initial encounter; W01.0XXA Fall on same level from slipping, tripping and stumbling without subsequent striking against object, initial encounter
CPT/HCPCS: 73080; 90715; 99282

== ENCOUNTER 2024-08-04 10:37 | Inpatient (IN) | payer MEDICARE, BC, SELFPAY ==
[2024-08-04] VITALS (16 sets, daily range): BP systolic 114–157; BP diastolic 57–96; PULSE 84–112; RESP 17–36; TEMP 36.1–37.1; O2SAT 65–97; BMI 33.7; BMI 33.9
--- NOTE | 2024-08-04 11:04 | EKG12_ITS ---
Test Reason : SOB Blood Pressure : */* mmHG Vent. Rate : 103 BPM Atrial Rate : 103 BPM P-R Int : 142 ms QRS Dur : 92 ms QT Int : 344 ms P-R-T Axes : 66 99 37 degrees QTcB Int : 450 ms Sinus tachycardia with Premature atrial complexes Rightward axis Borderline ECG Confirmed by ADONAY YOUNGER, BERNARDINO ([id number]), department editor EDNA PEREZ ([id number]) on 08/05/2024 8:16:05 AM Referred By: Confirmed By: BERNARDINO URIAS MD
--- NOTE | 2024-08-04 11:06 | EDS_ITS ---
HPI History of Present Illness Chief Complaint: General Illness Informant: patient and spouse/S.O. Onset/Context/Timing Onset: Days Context: Gradual Onset Timing: Continuous Current Severity: Moderate Maximum Severity: Moderate Narrative Narrative: 69-year-old history COPD, asthma and prediabetes. On CPAP at night not home O2 takes trilogy. Has not been on her CPAP for the last 5 nights or so. She has been sleeping upright in a chair. Complains of a nonproductive cough for last several days with increasing shortness of breath. No leg pain or swelling. No chest pain. No hemoptysis. No history of DVT or PE. No fever or chills. Prior similar symptoms: No Recent Illness/Hospitalization: [facility] Medical History Cataract (lens) fragments in eye following cataract surgery, unspecified eye High cholesterol Cataracts, bilateral Carpal tunnel syndrome Arthritis Seasonal allergies COPD with asthma Polyarthritis Positive MARKOS (antinuclear antibody) Insomnia Anxiety Hyperlipidemia Prediabetes Cardiac dysrhythmia Home Medications ?Medication ?Instructions ?Recorded ?Last Taken ?Type atorvastatin 20 mg tablet 20 mg PO DAILY 01/22/2104/30 History multivitamin 1 tab PO DAILY 01/22/2104/30 History metoprolol succinate 50 mg 50 mg PO DAILY 06/10/2104/30 History tablet,extended release 24 hr loratadine 10 mg tablet 10 mg PO DAILY PRN allergy s ymptoms 10/14/21 Unknown History albuterol sulfate 90 mcg/actuation 2 puff inhalation Q 6H PRN 03/04/24 Unknown Rx aerosol inhaler shortness of breath or wheez ing #8.5 grams fluticasone fur. 100 mcg-umeclid 1 inh inhalation YAYA Y #60 ea 03/04/24 08/04/24 Rx 62.5 mcg-vilant 25 mcg inhalat.powder (Trelegy Ellipta) montelukast 10 mg tablet 10 mg PO QPM #30 tabs 08/03/24 Rx nabumetone 500 mg tablet 500 mg PO BID PRN pain 05/24 Unknown History turmeric 400 mg capsule 400 mg PO DAILY 08/04/24 History Allergy/AdvReac Type Severity Reaction Status Date / Time No Known Allergies Allergy Verified 08/04/24 10:46 Family History Father COPD (chronic obstructive pulmonary disease) Myocardial infarction Depression High cholesterol Mother Macular degeneration COPD (chronic obstructive pulmonary disease) Myocardial infarction Surgical History H/O section History of carpal tunnel surgery History of adenoidectomy History of tonsillectomy Social History Smoking Status: Former smoker quit date: 04/06/16 Tobacco: How many years used: 41 alcohol intake: current alcohol intake frequency: a few times a week Alcohol type: beer ROS ROS ED ROS Narrative Cough. Shortness of breath. No chest pain. No leg pain or swelling. No fever. Constitutional Constitutional ED: Denies chills or fever(s) Eyes Eyes: Denies blurry vision ENT ENT ED: Denies ear pain Cardiovascular Cardiovascular: Denies chest pain Respiratory/Chest Respiratory/Chest: Reports cough and dyspnea; Denies sputum Gastrointestinal Gastrointestinal: Denies abdominal pain, diarrhea, melena, nausea or vomiting Genitourinary Genitourinary ED: Denies dysuria or hematuria Musculoskeletal Musculoskeletal: Denies arthralgias Integumentary Denies abscess Neurologic Neurologic: Denies headache(s) Psychiatric Psychiatric: Denies anxiety Endocrine Endocrinology: Denies cold intolerance Hematologic/Lymphatic Hematologic/Lymphatic: Reports none Allergic/Immunologic Allergic/Immunologic ED: Denies mouth swelling, tongue swelling or urticaria EXAM Physical Exam Narrative Exam Narrative: 69-year-old female vital signs initially on presentation her pulse ox was 65% on room air she was tolerating that reasonably well currently on 7 L she is 96%. Sitting upright in bed. No severe respiratory distress. at bedside. H EENT exam pupils round reactive light. Extra motions are intact. Moist mucous membranes. Neck nontender no JVD. No edema. Lungs clear to auscultation bilaterally. No rales rhonchi or wheezing. Wet cough. Heart regular rhythm no murmur rate about 110 tachycardic. Chest wall and ribs nontender. Abdomen soft nontender. Moving all 4 extremities. Normal ramp flight attendant strength. Normal dorsi ish ntarflexion. Calves are nontender without edema or cords. Back nontender. Neurologically the patient is awake and alert. Answering questions and following commands. Const Vital Signs: 08/04/24 10:37 08/04/24 10:43 08/04/24 10:45 Temperature 98.8 F 98.8 F Temperature Source Oral Oral Pulse Rate 112 H 112 H Respiratory Rate 36 H 36 H Respiratory Effort Short of Breath Labored Respiratory Pattern Tachypnea Blood Pressure 130/57 H 130/57 H Blood Pressure Mean 81 81 Pulse Ox 65 65 Oxygen Delivery Method Room Air Room Air Oxygen Flow Rate (L/min) 08/04/24 11:04 08/04/24 11:20 08/04/24 11:28 Temperature Temperature Source Pulse Rate 101 H 102 H Respiratory Rate 27 H 18 Respiratory Effort Respiratory Pattern Normal Blood Pressure Blood Pressure Mean Pulse Ox 94 95 Oxygen Delivery Method Nasal Cannula Oxygen Flow Rate (L/min) 10 08/04/24 11:30 08/04/24 11:31 08/04/24 11:45 Temperature 98.7 F Temperature Source Oral Pulse Rate 101 H 100 Respiratory Rate 17 28 H Respiratory Effort Respiratory Pattern Blood Pressure 129/71 H 127/79 H Blood Pressure Mean 88 95 Pulse Ox 94 93 93 Oxygen Delivery Method Nasal Cannula Nasal Cannula Oxygen Flow Rate (L/min) 4 4 08/04/24 11:47 08/04/24 11:47 08/04/24 12:00 Temperature Temperature Source Pulse Rate 102 H 102 H Respiratory Rate 19 H 19 H Respiratory Effort Respiratory Pattern Blood Pressure 127/79 H 119/96 H Blood Pressure Mean 94 105 Pulse Ox 87 87 Oxygen Delivery Method Oxygen Flow Rate (L/min) 08/04/24 12:31 08/04/24 12:31 Temperature 97.9 F Temperature Source Pulse Rate 88 88 Respiratory Rate 17 24 H Respiratory Effort Respiratory Pattern Blood Pressure 157/74 H 157/74 H Blood Pressure Mean 101 101 Pulse Ox 93 95 Oxygen Delivery Method Oxygen Flow Rate (L/min) Positive well nourished and well developed; Negative for cachectic, contractures or unkempt General Appearance ED: well developed; Negative for unkempt, cachectic, contractures, diaphoretic, NAD or pallor Nutritional Appearance: Negative for cachectic HEENT Reports moist mucous membranes Negative for trauma or tenderness Eyes PERRL and EOMs intact bilaterally General Eye ED: Negative for pale conjunctiva or scleral icterus Neck no lymphadenopathy, supple and no JVD General: Negative for tenderness Chest Wall inspection of chest normal and palpation of chest normal Resp normal respiratory effort and clear to auscultation bilaterally Resp Narrative: Wet cough. No rales or rhonchi. No significant wheezing. Prolonged expiratory phase. Auscultation: Negative for rales, rhonchi or wheezes Cardio regular rhythm, S1 normal heart sound, S2 normal heart sound and no murmurs Rate: tachycardic GI normal to inspection, nondistended, normoactive bowel sounds, non-tender, non- distended and no masses Palpation: soft; Negative for tender, guarding or rebound tenderness present Back/Spine no CVA tenderness General Back: Negative for CVA tenderness Cervical Spine: Negative for cervical spine tenderness Thoracic Spine / Upper Back: Negative for thoracic spinal tenderness or paraspinal muscle tenderness Extremity normal to inspection Extremity Narrative: Nontender. No edema. General Extremety ED: Negative for edema or tenderness General Extremity: Negative for edema Neuro oriented x3 and CN's II-XII intact bilaterally Sensorium / Orientation: alert; Negative for orientation impaired, lethargic or stuporous Motor Exam: strength 5/5 throughout Psych mental status grossly normal Appearance: Negative for unkempt Attitude: No agitated Mood & Affect: Negative for depressed, anxious or tearful Skin no rashes or lesions noted, no wounds and skin turgor normal General Skin Exam: elasticity normal; Negative for jaundice or pallor Lesions: No lesion noted Rashes: No rashes noted Trauma: Negative for abrasion Wounds: Negative for wounds noted MDM MDM MDM Narrative Medical decision making narrative: 69-year-old female URI symptoms rule out pneumonia versus CHF versus viral etiology. Most likely has exacerbation underlying COPD and/or asthma. Chest x- ray and labs will be performed. Treated with DuoNeb aerosol. Solu-Medrol for pulmonary constriction. Patient is significantly hypoxic will obtain an ABG. Repeat exam patient is feeling better after the aerosol treatment and Solu- Medrol. I suspect this is COPD flare secondary to viral URI I do not think she has pneumonia. There could also be a component of pulmonary edema with her chest x-ray appearance and the BNP of 5000. I discussed at all with her and her . She is doing well but without the oxygen she becomes hypoxic. I had the hospitalist on page for admission. She will need further testing. History & Record Review Discussion w/independent historian: Patient and Family Additional record(s) reviewed:: Prior inpatient record, Prior outpatient record, Prior ED visit and Prior labs Lab Data Attestation: I reviewed the patient's lab results. Lab results narrative: CBC shows a white count 12.6. H&H 12.9 and 38. Platelets 278. Blood gas unremarkable pH 7.4 pCO2 35. pO2 is 72. 94% sat that was on 7 L. Chemistry shows sodium 132. Gap of 18. BUN 24 creatinine 0.9. Glucose 172. Troponin 36. BNP of 5025. Health COVID, flu and RSV are all negative. Labs: Laboratory Results - last 24 hr 08/04/24 10:59 WBC 12.6 H RBC 4.39 Hgb 12.9 Hct 38.1 MCV 86.8 MCH 29.4 MCHC 33.9 RDW Std Deviation 47.0 H RDW Coeff of Kisha 14.6 Plt Count 270 MPV 11.4 Immature Gran % (Auto) 1.000 H Neut % (Auto) 80.6 H Lymph % (Auto) 8.1 L [place] % (Auto) 9.0 Eos % (Auto) 0.4 Baso % (Auto) 0.9 Absolute Neuts (auto) 10.1 H Absolute Lymphs (auto) 1.02 Nucleated RBC % 0 Differential Comment Sodium 132 L Potassium 4.5 Chloride 95 L Carbon Dioxide 19.2 L Anion Gap 18 H BUN 24 H Creatinine 0.92 Estim Creat Clear Calc 51.79 Est GFR (MDRD) Non-Af 67 BUN/Creatinine Ratio 25.6 H Glucose 172 H Calcium 9.4 Troponin T High Sens 36 H NT pro BNP II 5025 H ABG Data ABG results: ABG 08/04/24 11:17 Specimen Type ART Sample Site L Radial pH 7.41 Bicarbonate Actual 22.0 Total CO2 23 Base Excess -3 L O2 Saturation 95 ABG pCO2 35.0 ABG pO2 72 L Chase Test Positive O2 Delivery Device Cannula Vent Mode Not entered Radiography Chest X-Ray - ED: 2 View, Read by ED Physician, Read by Radiologist, Mediastinum, Bony Structures, Chronic Changes, Cardiomegaly, CHF and No Infiltrates Diagnostic Testing: Clinical Impression(s) from Imaging Studies Chest X-Ray 08/04/24 11:40 IMPRESSION: There is mild cardiomegaly with prominent central vascular markings and increased interstitial markings with the appearance of CHF. An overlying interstitial infiltrate in the lower lung godinez is not excluded. Reading [facility] Chest x-ray, 2 views, AP and lateral, interpreted by by myself and radiologist. Borderline cardiomegaly. Bilateral pulmonary edema. No obvious pneumonia. Rhythm Strip Rhythm Strip: Sinus Tach Rate: 103 Ectopy: None EKG Initial EKG: Attestation: I personally reviewed and interpreted this EKG as follows: Interpretation: No Acute Injury Pattern and Sinus Tachycardia Comments: Sinus tachycardia rate of 103 no acute signs of VT or ischemia. Critical Care Time Critical Care Time: Yes Critical care time (excluding procedures): 30-74 minutes, Including time spent:, Discussing w/Patient &/or Family/Legislative Correspondent, Discussing w/Consultants, Arranging Admission or Transfer, Performing Direct Patient Care at Bedside and - (35 minutes.) Discharge Plan Dx/Rx/DC Orders Clinical Impression: COPD exacerbation, Viral URI, Pulmonary edema, Hypoxia, History of sleep apnea Disposition Disposition: Acute Care [facility]
[2024-08-04 11:21] LABS: Allen Test Positive; Base Excess -3 mmol/L (-2 to +2); Blood Gas Specimen Type ART; Mode Not entered; O2 Delivery Device Cannula; PO2 72 mmHG (75-100); SITE L Radial; SO2 95 % (95-99); Total Carbon Dioxide 23 mmol/L; pH 7.41 (7.35-7.45)
[2024-08-04 11:25] LABS: Absolute Lymphocyte Count 1.02 X10^3/uL (0.83-4.51); Absolute Neutrophil Count 10.1 X10^3/uL (2.0-7.7); Basophil# 0.11 X10^3/uL; Basophil% 0.9 % (0-1); Eosinophil# 0.05 X10^3/uL; Eosinophils% 0.4 % (0-5); Hematocrit 38.1 % (37-47); Hemoglobin 12.9 g/dL (12.0-15.0); Lymphocyte # 1.02 X10^3/ul (0.83-4.51); Lymphocyte % 8.1 % (19-41); Mean Corp Hgb Conc 33.9 g/dL (32-36); Mean Corpuscular Hgb 29.4 pg (27.0-32.0); Mean Corpuscular Volume 86.8 fL (81-99); Mean Platelet Vol. 11.4 fl (6.2-12.0); Monocyte# 1.13 X10^3/uL; NRBC Flagged by Analyzer 0 % (0-5); Neutrophil # 10.13 X10^3/uL (2.7-7.7); Neutrophil % 80.6 % (47-70); POSITIVE MORPHOLOGY YES; Platelet Count 270 K/mm3 (150-450); RBC Distribution Width CV 14.6 % (11.6-14.6); Red Blood Count 4.39 M/mm3 (4.2-5.4); White Blood Count 12.6 K/mm3 (4.4-11.0)
[2024-08-04 11:28] LABS: Differential Indicated SCAN CRITERIA MET
[2024-08-04] MEDS: Ipratropium/Albuterol Sulfate 3 ML AMPUL.NEB INHALATION ×2 (11:28→19:45)
[2024-08-04] MEDS: MethylPREDNISolone 125 MG/2 ML Vial IV (11:34)
--- NOTE | 2024-08-04 11:40 | RAD_ITS ---
PROCEDURE: CHEST PA AND LATERAL 08/04/2024 REASON FOR EXAM: CHEST PAIN TECHNIQUE: Frontal and lateral views of the chest. COMPARISON: May 05, [address] FINDINGS: There is mild cardiomegaly with prominent central vascular markings and increased interstitial markings with the appearance of CHF. An overlying interstitial infiltrate in the lower lung godinez is not excluded. There is no pneumothorax or effusion. There is no visible acute bony abnormality. Aortic calcifications are noted. RAD/Chest PA and Lateral IMPRESSION: There is mild cardiomegaly with prominent central vascular markings and increas ed interstitial markings with the appearance of CHF. An overlying interstitial infiltrate in the lower lung godinez is not excluded. Reading Location: [facility]
[2024-08-04 11:45] LABS: Anion Gap 18 (5-15); BUN 24 mg/dL (4-19); BUN/Creat Ratio 25.6 RATIO (10-20); Calcium,Total 9.4 mg/dL (7.6-11.0); Carbon Dioxide 19.2 mmol/L (21.0-32.0); Chloride 95 mmol/L (98-108); Creatinine, Serum 0.92 mg/dL (0.70-1.20); EST Glomerular Filtration Rate 67 (>60); Estimated Creatinine Clearance 51.79 ml/min (50-250); Glucose 172 mg/dL (70-99); Potassium 4.5 mmol/L (3.3-5.1); Pro- Brain NATRIURETIC PEPTIDE 5025 pg/mL (<=900); Sodium Level 132 mmol/L (133-145); Troponin T High Sensitivity 36 ng/L (<=14)
--- NOTE | 2024-08-04 12:48 | PCM.HP.STD ---
HPI - General General Date of Admission: 08/04/24 Date of Service: 08/04/24 Chief Complaint: Worsening shortness of breath with nonproductive cough HPI Narrative CLINT MCGREGOR, is a 69 F who presented to [facility] ED on 08/04/2024 with worsening shortness of breath with nonproductive cough. Patient has history of COPD, follows with Dr. Lawrence's office. Does not wear home oxygen at baseline. She reports a nonproductive cough with progressive shortness of breath over the past 4 to 5 days. She has been using her home inhalers without much improvement. Denies any leg pain or swelling. Denies any chest pain. Denies any sputum production. Denies any fevers or chills. On arrival to the ED her oxygen saturation was noted to be 65% on room air. She was put on 10 L high flow nasal cannula with improvement to the mid 90s. ABG at that time showed pH 7.41, PO2 72, pCO2 35. Chest x-ray showed mild cardiomegaly with prominent central vascular markings and increased interstitial markings concerning for CHF. Labs notable for WBC count 12, BNP 5025. COVID/flu/RSV negative. CTA chest was obtained and showed no PE, did show new dependent and irregular nodular bilateral opacities most compatible with pneumonia along with new mild mediastinal and left hilar lymphadenopathy. She was given a breathing treatment and IV Solu-Medrol in the ED with improvement in work of breathing and was weaned to 6 L nasal cannula. Hospitalist was then contacted for admission. I saw the patient at bedside in the ED, was present. Patient was mildly fatigued appearing but otherwise sitting back comfortably in bed, conversing normally, in no acute distress. She is breathing comfortably on 6 L nasal cannula at rest. She reported feeling moderately improved from a shortness of breath standpoint after the breathing treatment. She currently denies any fevers or chills, chest pain or shortness of breath at rest. No other acute concerns at this time. [facility] Medical History Cataract (lens) fragments in eye following cataract surgery, unspecified eye High cholesterol Cataracts, bilateral Carpal tunnel syndrome Arthritis Seasonal allergies COPD with asthma Polyarthritis Positive MARKOS (antinuclear antibody) Insomnia Anxiety Hyperlipidemia Prediabetes Cardiac dysrhythmia Home Medications ?Medication ?Instructions ?Recorded ?Last Taken ?Type atorvastatin 20 mg tablet 20 mg PO DAILY 01/22/21 08/04/24 History multivitamin 1 tab PO DAILY 01/22/21 08/04/24 History metoprolol succinate 50 mg 50 mg PO DAILY 06/10/21 08/04/24 History tablet,extended release 24 hr loratadine 10 mg tablet 10 mg PO DAILY PRN allergy symptoms 10/14/21 Unknown History albuterol sulfate 90 mcg/actuation 2 puff inhalation Q6H PRN 03/04/24 Unknown Rx aerosol inhaler shortness of breath or wheezing #8.5 grams fluticasone fur. 100 mcg-umeclid 1 inh inhalation DAILY #60 ea 03/04/24 08/04/24 Rx 62.5 mcg-vilant 25 mcg inhalat.powder (Trelegy Ellipta) montelukast 10 mg tablet 10 mg PO QPM #30 tabs 05/24/24 08/03/24 Rx nabumetone 500 mg tablet 500 mg PO BID PRN pain 05/24/24 Unknown History turmeric 400 mg capsule 400 mg PO DAILY 08/04/24 08/03/24 History Allergy/AdvReac Type Severity Reaction Status Date / Time No Known Allergies Allergy Verified 08/04/24 10:46 Family History Father COPD (chronic obstructive pulmonary disease) Myocardial infarction Depression High cholesterol Mother Macular degeneration COPD (chronic obstructive pulmonary disease) Myocardial infarction Surgical History H/O section History of carpal tunnel surgery History of adenoidectomy History of tonsillectomy Social History Smoking Status: Former smoker quit date: 04/06/16 Tobacco: How many years used: 41 alcohol intake: current alcohol intake frequency: a few times a week Alcohol type: beer ROS Constitutional Constitutional: Reports fatigue; Denies chills, fever(s) or weakness Eyes Eyes: Denies change in vision ENT HEENT: Denies nasal congestion, nasal discharge, sinus pressure or sore throat Cardiovascular Cardiovascular: Reports dyspnea on exertion; Denies chest pain, edema, lightheadedness or rapid heart rate Respiratory/Chest Respiratory/Chest: Reports cough, shortness of breath at rest and shortness of breath with exertion; Denies productive cough or wheezing Gastrointestinal Gastrointestinal: Denies abdominal pain Musculoskeletal Musculoskeletal: Denies arthralgias or myalgias Vital Signs Vital Signs Vital Signs: 08/04/24 10:37 08/04/24 10:43 08/04/24 10:45 Temperature 98.8 F 98.8 F Temperature Source Oral Oral Pulse Rate 112 H 112 H Respiratory Rate 36 H 36 H Respiratory Effort Short of Breath Labored Respiratory Pattern Tachypnea Blood Pressure 130/57 H 130/57 H Blood Pressure Mean 81 81 Pulse Ox 65 65 Oxygen Delivery Method Room Air Room Air Oxygen Flow Rate (L/min) 08/04/24 11:04 08/04/24 11:20 08/04/24 11:28 Temperature Temperature Source Pulse Rate 101 H 102 H Respiratory Rate 27 H 18 Respiratory Effort Respiratory Pattern Normal Blood Pressure Blood Pressure Mean Pulse Ox 94 95 Oxygen Delivery Method Nasal Cannula Oxygen Flow Rate (L/min) 10 08/04/24 11:30 08/04/24 11:31 08/04/24 11:45 Temperature 98.7 F Temperature Source Oral Pulse Rate 101 H 100 Respiratory Rate 17 28 H Respiratory Effort Respiratory Pattern Blood Pressure 129/71 H 127/79 H Blood Pressure Mean 88 95 Pulse Ox 94 93 93 Oxygen Delivery Method Nasal Cannula Nasal Cannula Oxygen Flow Rate (L/min) 4 4 08/04/24 11:47 08/04/24 11:47 08/04/24 12:00 Temperature Temperature Source Pulse Rate 102 H 102 H Respiratory Rate 19 H 19 H Respiratory Effort Respiratory Pattern Blood Pressure 127/79 H 119/96 H Blood Pressure Mean 94 105 Pulse Ox 87 87 Oxygen Delivery Method Oxygen Flow Rate (L/min) 08/04/24 12:31 08/04/24 12:31 Temperature 97.9 F Temperature Source Pulse Rate 88 88 Respiratory Rate 17 24 H Respiratory Effort Respiratory Pattern Blood Pressure 157/74 H 157/74 H Blood Pressure Mean 101 101 Pulse Ox 93 95 Oxygen Delivery Method Oxygen Flow Rate (L/min) Weight Weight: 77.973 kg Body Mass Index (BMI) 33.7 Physical Exam Const alert, oriented x3 and no apparent distress Constitutional Narrative: Pleasant elderly female, class I obesity, mildly fatigued appearing but otherwise sitting up comfortably in bed, conversing normally, in no acute distress. General Appearance: cooperative and comfortable HEENT normocephalic, head/scalp atraumatic, hearing grossly normal bilaterally, nasal mucous membranes and turbinates normal and moist oral mucous membranes Eyes PERRL, EOMs intact bilaterally and conjunctivae normal Neck full ROM Chest inspection of chest normal Resp normal respiratory effort and no use of accessory muscles Resp Narrative: Breathing comfortably on 6 L nasal cannula at rest. Moderately decreased breath sounds bilaterally throughout with mild crackles noted in mid lung zones. No wheezing noted. Cardio no murmurs and peripheral pulses 2+ throughout Cardio Narrative: Tachycardic, regular rhythm. GI normal to inspection, nondistended, normoactive bowel sounds, soft to palpation, non-tender and non-distended Back/Spine normal ROM Extremity normal to inspection, full ROM and no pedal edema Skin no rashes or lesions noted Psych mental status grossly normal Results Lab / Micro Data 08/04/24 10:59 08/04/24 10:59 Labs: Laboratory Results - last 24 hr 08/04/24 10:59: WBC 12.6 H, RBC 4.39, Hgb 12.9, Hct 38.1, MCV 86.8, MCH 29.4, MCHC 33.9, RDW Std Deviation 47.0 H, RDW Coeff of Kisha 14.6, Plt Count 270, MPV 11.4, Immature Gran % (Auto) 1.000 H, Neut % (Auto) 80.6 H, Lymph % (Auto) 8.1 L, Jasper % (Auto) 9.0, Eos % (Auto) 0.4, Baso % (Auto) 0.9, Absolute Neuts (auto) 10.1 H, Absolute Lymphs (auto) 1.02, Nucleated RBC % 0, Differential Comment , Sodium 132 L, Potassium 4.5, Chloride 95 L, Carbon Dioxide 19.2 L, Anion Gap 18 H, BUN 24 H, Creatinine 0.92, Estim Creat Clear Calc 51.79, Est GFR (MDRD) Non-Af 67, BUN/Creatinine Ratio 25.6 H, Glucose 172 H, Calcium 9.4, Troponin T High Sens 36 H, NT pro BNP II 5025 H Micro: Microbiology 08/04/24 11:14 Mucosa - Nose SARS-CoV-2, Influenza & RSV (PCR) - Final ABG Data ABG results: ABG 08/04/24 11:17 Specimen Type ART Sample Site L Radial pH 7.41 Bicarbonate Actual 22.0 Total CO2 23 Base Excess -3 L O2 Saturation 95 ABG pCO2 35.0 ABG pO2 72 L Chase Test Positive O2 Delivery Device Cannula Vent Mode Not entered Rhythm Strip Rhythm Strip: Sinus Tach Rate: 103 Ectopy: None Imaging Radiology Impression Chest X-Ray 08/04/24 11:40 IMPRESSION: There is mild cardiomegaly with prominent central vascular markings and increased interstitial markings with the appearance of CHF. An overlying interstitial infiltrate in the lower lung godinez is not excluded. Reading [facility] Assessment & Plan Assessment/Plan (1) Acute hypoxic respiratory failure: (2) Multifocal pneumonia: (3) COPD exacerbation: PLAN: Plan Patient is a 69-year-old female who presented to [facility] ED on 08/04/2024 with worsening shortness of breath and nonproductive cough. 1. Acute hypoxic respiratory failure suspected secondary to multifocal pneumonia and acute exacerbation of COPD, concern for new onset heart failure ? Admit under inpatient status to PCU. Not on home oxygen, was requiring up to 10 L high flow nasal cannula on admit to maintain appropriate oxygen saturations. CTA chest showed findings most consistent with multifocal pneumonia plus or minus pulmonary edema. COVID/flu/RSV negative. Respiratory PCR panel, urine antigens and sputum culture pending. Will treat with IV steroids, IV antibiotics and scheduled DuoNebs for now. Wean supplemental oxygen as able. BNP elevated at 5025 concerning for new onset heart failure. Echo ordered for further evaluation. Will give dose of IV Lasix now and monitor response. Monitor closely. Continue home long-acting inhaler. 2. Mild hyponatremia ? Sodium 132 on admit, chloride 95. Unclear if due to dehydration versus mild volume overload. Giving spot doses of IV Lasix for now, monitor daily BMP and urine output. 3. Class I obesity with STEPHON ? BMI 33 on admit. Encouraged weight loss. Continue home CPAP at night. 4. Hypertension, hyperlipidemia ? Normotensive on admit. Continue home Toprol and atorvastatin. 5. Seasonal allergies ? Continue home loratadine and montelukast. DVT prophylaxis: Lovenox CODE STATUS: Full code, verified Expected disposition: Home, TBD Total clinical time spent by myself addressing the patient's medical issues, reviewing all the data, and collaborating with patient's care team: 75 minutes. Charges/Coding Visit Charges Inpatient E&M: 75986 Init Hosp L3
--- NOTE | 2024-08-04 12:54 | ECHOD_ITS ---
Reason For Study Reason For Study: CHF Procedure This was a 2D Doppler, Color Flow transthoracic echocardiogram. The study was technically difficult. Due to body habitus & COPD. Deferred Definity due to increased PAP >60 mmHg. Exam performed portable in patient room. Left Ventricle Normal LV size. Grossly normal LV function. The estimated ejection fraction is 60 %. Diastolic function is indeterminate. Stage 1 diastolic dysfunction. Right Ventricle Normal RV size. Normal systolic function. Atria Normal left atrium. Normal right atrium. Mitral Valve The mitral valve is structurally normal. No prolapse or stenosis seen. Tricuspid Valve Normal tricuspid valve. Mild (1+) tricuspid valve insufficiency. Pulmonary artery systolic pressure is 61 mmHg. Aortic Valve Trisinus/trileaflet aortic valve. Pulmonic Valve The pulmonic valve is not well visualized. Great Vessels Normal sized aortic root. Pericardium/Pleural No pericardial effusion. MMode/2D Measurements & Calculations LVIDd: 4.6 cm IVSd: 1.0 cm Ao root diam: 3.2 cm LVIDs: 3.3 cm LVPWd: 1.0 cm FS: 27.7 % LAV(MOD-bp): 52.2 ml LVAd ap4: 20.2 cm2 LVAd ap2: 18.9 cm2 LAV(MOD-bp) Indexed: 29.9 ml/m2 LVLd ap4: 7.5 cm LVLd ap2: 6.6 cm LAV(MOD-sp2): 50.0 ml EDV(MOD-sp4): 46.7 ml EDV(MOD-sp2): 45.0 ml LAV(MOD-sp4): 50.0 ml EDV(sp4-el): 46.1 ml EDV(sp2-el): 45.8 ml LVAs ap4: 10.7 cm2 LVAs ap2: 10.5 cm2 LVLs ap4: 6.3 cm LVLs ap2: 6.1 cm ESV(MOD-sp4): 16.1 ml ESV(MOD-sp2): 15.1 ml ESV(sp4-el): 15.6 ml ESV(sp2-el): 15.4 ml EF(MOD-sp4): 65.6 % EF(MOD-sp2): 66.4 % EF(sp4-el): 66.2 % SV(MOD-sp4): 30.6 ml SV(MOD-sp2): 29.9 ml SV(sp4-el): 30.5 ml SI(MOD-sp4): 17.5 ml/m2 SI(MOD-sp2): 17.1 ml/m2 LA A4 area: 18.0 cm2 LA dimension(2D): 3.8 cm RA A4 area: 14.1 cm2 TAPSE: 1.8 cm Time Measurements MV dec time: 0.24 sec Doppler Measurements & Calculations MV E max osvaldo: 69.8 cm/sec Lat Peak E' Osvaldo: 5.4 cm/sec Med Peak E' Osvaldo: 5.6 cm/sec MV A max osvaldo: 104.1 cm/sec E/E' lat: 13.0 E/E' med: 12.6 MV E/A: 0.67 MV V2 max: 100.9 cm/sec MV P1/2t max osvaldo: 58.2 cm/sec Ao V2 max: 140.8 cm/sec MV max P.1 mmHg MV P1/2t: 69.9 msec Ao max P.9 mmHg MV V2 mean: 59.6 cm/sec Ao V2 mean: 103.6 cm/sec MV mean P.6 mmHg MV dec slope: 243.9 cm/sec2 Ao mean P.6 mmHg MV V2 VTI: 23.2 cm MVA(P1/2t): 3.1 cm2 Ao V2 VTI: 27.0 cm AV (velocity ratio): 0.74 LV V1 max: 91.8 cm/sec PA V2 max: 69.2 cm/sec TR max osvaldo: 380.2 cm/sec LV V1 max P.4 mmHg PA V2 mean: 48.3 cm/sec TR max P.8 mmHg LV V1 mean P.0 mmHg LV V1 mean: 68.2 cm/sec LV V1 VTI: 20.1 cm ECHO/Echo Complete Interpretation Summary The estimated ejection fraction is 60 %. Diastolic function is indeterminate. Pulmonary artery systolic pressure is 61 mmHg. Structually normal valves. Stage 1 diastolic dysfunction. The study was technically difficult. Ordering Physician: Cr Treadwell Referring Physician: Eladio Mills Performed By: Payal Martinez, KARLO, RVT
--- NOTE | 2024-08-04 13:30 | CT_ITS ---
PROCEDURE: Demineralization. Multilevel spondylosis. (CTCTACHWW), 08/04/2024 REASON FOR EXAM: HYPOXIA TECHNIQUE: CTA chest was performed with IV contrast. Multiplanar reformats and MIP reconstructions were generated. CONTRAST: Isovue 370 VOLUME: 100mL RADIATION DOSE SUMMARY: CTDlvol: 9.50+ 11.14 mGy DLP: 373.87 mGycm One or more dose reduction techniques were used (e.g., Automated exposure control, adjustment of the mA and/or kV according to patient size, use of iterative reconstruction technique). COMPARISON: 05/05/2024 FINDINGS: Mild/moderate motion limitation limiting sensitivity for peripheral pulmonary embolus. Heart/pericardium: Cardiomegaly. Relative enlargement of the RIGHT ventricle and bilateral atria. Multivessel coronary atherosclerosis and/or stents. Trace aortic annular calcification. Aorta: Mild atherosclerosis. Pulmonary arteries: Enlarged central pulmonary arteries which may suggest pulmonary arterial hypertension.. No central or definite pulmonary embolism is identified. Lymph nodes: LEFT hilar node, 13 mm short axis, not previously measurable in the absence of IV contrast. Subcarinal nodes up to 13 mm short axis, previously subcentimeter. Paratracheal nodes up to 11 mm short axis, previously subcentimeter.. Lungs/pleura: Emphysema. Focal irregular nodular opacities in the LEFT upper and lower lobes are new from prior, up to 16 x 22 mm (series 2, image 168). Dependent airspace disease in the RIGHT lower lobe is also new from prior. Suspected vague nodular airspace disease in the anterior RIGHT upper lobe as well as in some dependent areas of the RIGHT lower lobe. Granulomas... Airways: Unremarkable. Chest wall: Unremarkable. Upper abdomen: Suspect partially imaged hepatomegaly. Musculoskeletal: Demineralization. Mild multilevel spondylosis.. CT/CTA Chest W/WO Contrast IMPRESSION: 1. Slightly motion limited exam. No central or definite pulmonary embolism brenda ntified. 2. New dependent and irregular nodular opacities bilaterally, compatible with p neumonia given the context, however given emphysema and vaguely nodular appearance, recommend CT chest in 3 months to doc ument resolution. 3. New mild mediastinal and LEFT hilar lymphadenopathy, nonspecific and potenti ally reactive to the above. Attention on above recommended follow-up imaging which should ideally include IV contrast. 4. Suspect partially imaged hepatomegaly. Correlate for clinical and laborator y evidence of chronic liver disease. 5. Additional description as above. Reading Location: [facility]
[2024-08-04] MEDS: Ceftriaxone 1 GM/50 ML BAG IV (15:51)
[2024-08-04] MEDS: Furosemide 20 MG/2 ML VIAL IV (15:51)
[2024-08-04] MEDS: Azithromycin 500 MG in 0.9% Normal Saline (250mL Bag) 250 ML 255 MG IV (16:40)
[2024-08-04 17:49] LABS: Troponin T High Sens 4 HR 26 ng/L (<=14)
[2024-08-04] MEDS: Budesonide Respules 0.5 MG/2 ML AMPUL.NEB. INHALATION (19:45)
[2024-08-04] MEDS: Montelukast 10 MG Tablet PO (20:57)
[2024-08-05] VITALS (9 sets, daily range): BP systolic 114–131; BP diastolic 58–78; PULSE 61–74; RESP 17–20; TEMP 36.2–36.8; O2SAT 91–96
[2024-08-05 05:16] LABS: Hematocrit 33.4 % (37-47); Hemoglobin 11.3 g/dL (12.0-15.0); Mean Corp Hgb Conc 33.8 g/dL (32-36); Mean Corpuscular Hgb 29.4 pg (27.0-32.0); Mean Corpuscular Volume 86.8 fL (81-99); Mean Platelet Vol. 12.4 fl (6.2-12.0); Platelet Count 235 K/mm3 (150-450); RBC Distribution Width CV 14.6 % (11.6-14.6); RBC Distribution Width SD 46.5 fl (35.1-43.9); Red Blood Count 3.85 M/mm3 (4.2-5.4); White Blood Count 9.2 K/mm3 (4.4-11.0)
[2024-08-05] MEDS: Ipratropium/Albuterol Sulfate 3 ML AMPUL.NEB INHALATION ×3 (06:50→19:30)
[2024-08-05] MEDS: Budesonide Respules 0.5 MG/2 ML AMPUL.NEB. INHALATION (06:50)
[2024-08-05 07:11] LABS: Anion Gap 14 (5-15); BUN 33 mg/dL (4-19); BUN/Creat Ratio 34.8 RATIO (10-20); Carbon Dioxide 21.5 mmol/L (21.0-32.0); Chloride 94 mmol/L (98-108); Creatinine, Serum 0.96 mg/dL (0.70-1.20); EST Glomerular Filtration Rate 64 (>60); Estimated Creatinine Clearance 49.91 ml/min (50-250); Glucose 188 mg/dL (70-99); Potassium 4.5 mmol/L (3.3-5.1); Sodium Level 130 mmol/L (133-145)
[2024-08-05] MEDS: 0.9% Normal Saline (1000mL) 1,000 ML 250 ML IV (08:30)
[2024-08-05] MEDS: Ceftriaxone 1 GM/50 ML BAG IV (08:30)
[2024-08-05] MEDS: Enoxaparin 40 MG/0.4 ML Syringe SC (08:31)
[2024-08-05] MEDS: Atorvastatin Calcium 20 MG Tablet PO (08:31)
[2024-08-05] MEDS: Multivitamins,Therapeutic Tablet 1 TABLET PO (08:31)
[2024-08-05] MEDS: Metoprolol(XL)Succ 50 MG Tablet PO (08:39)
[2024-08-05] MEDS: Azithromycin 500 MG in 0.9% Normal Saline (250mL Bag) 250 ML 255 MG IV (09:19)
--- NOTE | 2024-08-05 10:42 | PN.HOSP_ITS ---
Reason for Visit Reason for Visit: Diagnoses Pneumonia, unspecified organism (08/04/24) Chronic obstructive pulmonary disease with (acute) exacerbation (08/04/24) Acute respiratory failure with hypoxia (08/04/24) Subjective Subjective Saw patient at bedside this morning. Patient was pleasant, sitting up comfortably at edge of the bed, conversing normally and in no acute distress. She was still requiring 2 L nasal cannula to maintain appropriate oxygen saturations. States that she feels moderately improved from a breathing standpoint today compared to on admission. Denies any fevers or chills. States her cough has improved from yesterday. No other new concerns today. Objective Data Objective Data Vital Signs: Vital Signs Temp Pulse Resp BP Pulse Ox O2 Del Method O2 Flow Rate 98.0 F 71 20 H 124/58 H 91 Room Air 2 08/05/24 08:28 08/05/24 08:39 08/05/24 08:28 08/05/24 08:28 08/05/24 08:28 08/05/24 08:54 08/05/24 08:28 Oxygen Flow Rate (L/min) 2 Oxygen Delivery Method Room Air Weight: 78.8 kg Body Mass Index (BMI) 33.9 Intake & Output: Intake and Output for Last 24 Hours 08/03/24 08/04/24 08/05/24 23:59 23:59 23:59 Intake Total 305 / 305 305 / 305 Balance 305 / 305 305 / 305 Lab / Micro Data 08/05/24 03:46 08/05/24 06:19 Labs: Laboratory Results - last 24 hr 08/04/24 10:59: WBC 12.6 H, RBC 4.39, Hgb 12.9, Hct 38.1, MCV 86.8, MCH 29.4, MCHC 33.9, RDW Std Deviation 47.0 H, RDW Coeff of Kisha 14.6, Plt Count 270, MPV 11.4, Immature Gran % (Auto) 1.000 H, Neut % (Auto) 80.6 H, Lymph % (Auto) 8.1 L , Clinch % (Auto) 9.0, Eos % (Auto) 0.4, Baso % (Auto) 0.9, Absolute Neuts (auto) 10.1 H, Absolute Lymphs (auto) 1.02, Nucleated RBC % 0, Differential Comment , S odium 132 L, Potassium 4.5, Chloride 95 L, Carbon Dioxide 19.2 L, Anion Gap 18 H , BUN 24 H, Creatinine 0.92, Estim Creat Clear Calc 51.79, Est GFR (MDRD) Non-Af 67, BUN/Creatinine Ratio 25.6 H, Glucose 172 H, Calcium 9.4, Troponin T High Sens 36 H, NT pro BNP II 5025 H 08/04/24 17:23: Troponin T Hi Sens 4Hr 26 H 08/05/24 03:46: WBC 9.2, RBC 3.85 L, Hgb 11.3 L, Hct 33.4 L, MCV 86.8, MCH 29.4, MCHC 33.8, RDW Std Deviation 46.5 H, RDW Coeff of Kisha 14.6, Plt Count 235, MPV 12.4 H 08/05/24 06:19: Sodium 130 L, Potassium 4.5, Chloride 94 L, Carbon Dioxide 21.5, Anion Gap 14, BUN 33 H, Creatinine 0.96, Estim Creat Clear Calc 49.91 L, Est GFR (MDRD) Non-Af 64, BUN/Creatinine Ratio 34.8 H, Glucose 188 H, Calcium 9.0 Micro: Microbiology 08/04/24 15:15 Mucosa - Nasopharyngeal Respiratory Panel (PCR) - Final 08/04/24 16:35 Urine, Clean Catch Legionella Antigen - Final 08/04/24 16:35 Urine, Clean Catch Streptococcus pneumoniae Antigen (M - Final 08/04/24 11:14 Mucosa - Nose SARS-CoV-2, Influenza & RSV (PCR) - Final ABG Data ABG results: ABG 08/04/24 11:17 Specimen Type ART Sample Site L Radial pH 7.41 Bicarbonate Actual 22.0 Total CO2 23 Base Excess -3 L O2 Saturation 95 ABG pCO2 35.0 ABG pO2 72 L Chase Test Positive O2 Delivery Device Cannula Vent Mode Not entered Radiography Diagnostic Testing: Radiology Impression Chest X-Ray 08/04/24 11:40 IMPRESSION: There is mild cardiomegaly with prominent central vascular markings and increased interstitial markings with the appearance of CHF. An overlying interstitial infiltrate in the lower lung godinez is not excluded. Reading [facility] Chest CTA 08/04/24 13:30 IMPRESSION: 1. Slightly motion limited exam. No central or definite pulmonary embolism identified. 2. New dependent and irregular nodular opacities bilaterally, compatible with pneumonia given the context, however given emphysema and vaguely nodular appearance, recommend CT chest in 3 months to document resolution. 3. New mild mediastinal and LEFT hilar lymphadenopathy, nonspecific and potentially reactive to the above. Attention on above recommended follow-up imaging which should ideally include IV contrast. 4. Suspect partially imaged hepatomegaly. Correlate for clinical and laboratory evidence of chronic liver disease. 5. Additional description as above. Reading Location: [facility] Rhythm Strip Rhythm Strip: Sinus Tach Rate: 103 Ectopy: None Physical Exam Const alert, oriented x3 and no apparent distress Constitutional Narrative: Pleasant elderly female, class I obesity, energy improved from admission, sitting up comfortably in bed, conversing normally, in no acute distress. General Appearance: cooperative and comfortable HEENT normocephalic, head/scalp atraumatic, hearing grossly normal bilaterally, nasal mucous membranes and turbinates normal and moist oral mucous membranes Eyes PERRL, EOMs intact bilaterally and conjunctivae normal Neck full ROM Chest inspection of chest normal Resp normal respiratory effort and no use of accessory muscles Resp Narrative: Breathing comfortably on 2 L nasal cannula at rest. Mildly decreased breath sounds bilaterally throughout with mild crackles noted in mid lung zones. No wheezing noted. Improving. Cardio regular rate, regular rhythm, no murmurs and peripheral pulses 2+ throughout GI normal to inspection, nondistended, normoactive bowel sounds, soft to palpation, non-tender and non-distended Back/Spine normal ROM Extremity normal to inspection, full ROM and no pedal edema Skin no rashes or lesions noted Psych mental status grossly normal Assessment & Plan Assessment/Plan (1) Acute hypoxic respiratory failure: (2) Multifocal pneumonia: (3) COPD exacerbation: PLAN: Plan Patient is a 69-year-old female who presented to [facility] ED on 08/04/2024 with worsening shortness of breath and nonproductive cough. 1. Acute hypoxic respiratory failure suspected secondary to multifocal pneumonia and acute exacerbation of COPD, concern for new onset heart failure ? Not on home oxygen, was requiring up to 10 L high flow nasal cannula on admit to maintain appropriate oxygen saturations. CTA chest showed findings most consistent with multifocal pneumonia plus or minus pulmonary edema. COVID/flu/RSV, respiratory PCR panel and urine antigens negative. Has been unable to produce sputum culture. Treated with IV steroids, IV antibiotics and scheduled DuoNebs on admission and patient has been improving. Will de-escalate to p.o. steroids on 08/06. BNP elevated at 5025 concerning for new onset heart failure. Echo completed, read pending. However, gave dose of Lasix yesterday and patient had worsening sodium and chloride levels so was given IV fluids back on 08/05. Wean supplemental oxygen as able. Continue home long-acting inhaler. Hopeful for discharge home in the next 1 to 2 days. 2. Mild hyponatremia ? Sodium 132 on admit, chloride 95. Was unclear if due to dehydration versus mild volume overload on admit; gave 1 dose of IV Lasix and sodium and chloride mildly worsened, so IV fluids were given on 08/05. Continue to monitor BMP daily. 3. Class I obesity with STEPHON ? BMI 33 on admit. Encouraged weight loss. Continue home CPAP at night. 4. Hypertension, hyperlipidemia ? Normotensive on admit. Continue home Toprol and atorvastatin. 5. Seasonal allergies ? Continue home loratadine and montelukast. DVT prophylaxis: Lovenox CODE STATUS: Full code, verified Expected disposition: Home, 1 to 2 days Total clinical time spent by myself addressing the patient's medical issues, reviewing all the data, and collaborating with patient's care team: 35 minutes. Charges/Coding Visit Charges Inpatient E&M: 24611 Subs Hosp L2
--- NOTE | 2024-08-05 11:41 | CASEMGMT ---
ALAYNA LANDON Assessment Face to Face with patient for initial transition planning/care coordination assessment. ALAYNA LANDON introduced self and role at [facility], pt voices understanding. Pt is A&Ox4 and is resting comfortably in bed and is calm. Care providers, pharmacy, and demographics verified. Admitting dx: Acute on Chronic Hypoxic RF LACE Strata: 2 PCP: Eladio Mills Specialists: [facility], Dr. Trey Cruz (Direct Support Professional Caregiver) Preferred Pharmacy: [facility] Insurance: [employer] A/B, [employer] Prescription Benefit: Yes LNOK: Guzman (H) Living Arrangements: Pt lives with her in a single story home with 3 steps to enter ADLs/IADLs: Ind Transportation: Self, . Denies concerns DME: Inhaler. Pulse ox. Medical alert system through [employer]. CPAP. Pt is currently requiring additional oxygen and may qualify for home oxygen use. A verbal list of local in-network DME companies were provided to the pt at this time. Pt prefers [facility] HHC/SNF: Denies personal history or needs. Pt states that her has had HHC before Pt?s goal: Home Plan: Home with pt once medically ready, follow for oxygen needs. 6-Click score is 24. Pt denies the need for OP Tx or any further DC needs or resources. Report given to MOBILE UI DEVELOPER CM. Lori Babin RN, CM
--- NOTE | 2024-08-05 11:45 | CASEMGMT ---
Social Work SW assisted pt in completing Living Will and Health Care POA naming her spouse Guzman Barragan. Copy placed on pt chart and original given to pt. SUREKHA Rios
[2024-08-05] MEDS: Pantoprazole Sodium 40 MG Tablet PO (17:45)
[2024-08-05] MEDS: Montelukast 10 MG Tablet PO (21:36)
[2024-08-06] VITALS (11 sets, daily range): BP systolic 127–139; BP diastolic 60–80; PULSE 63–98; RESP 16–20; TEMP 36.6–37.2; O2SAT 81–95
[2024-08-06] MEDS: Ipratropium/Albuterol Sulfate 3 ML AMPUL.NEB INHALATION ×3 (06:50→19:45)
[2024-08-06] MEDS: Multivitamins,Therapeutic Tablet 1 TABLET PO (08:14)
[2024-08-06] MEDS: predniSONE 20 MG Tablet 40 MG PO (08:14)
[2024-08-06 09:01] LABS: Hematocrit 32.4 % (37-47); Mean Corpuscular Hgb 29.5 pg (27.0-32.0); Mean Corpuscular Volume 86.9 fL (81-99); Mean Platelet Vol. 10.7 fl (6.2-12.0); Platelet Count 270 K/mm3 (150-450); RBC Distribution Width CV 14.7 % (11.6-14.6); RBC Distribution Width SD 46.6 fl (35.1-43.9); Red Blood Count 3.73 M/mm3 (4.2-5.4); White Blood Count 13.8 K/mm3 (4.4-11.0)
[2024-08-06 09:29] LABS: Anion Gap 12 (5-15); BUN 27 mg/dL (4-19); BUN/Creat Ratio 33.2 RATIO (10-20); Calcium,Total 9.1 mg/dL (7.6-11.0); Carbon Dioxide 23.7 mmol/L (21.0-32.0); Chloride 98 mmol/L (98-108); Creatinine, Serum 0.81 mg/dL (0.70-1.20); EST Glomerular Filtration Rate 78 (>60); Estimated Creatinine Clearance 59.15 ml/min (50-250); Glucose 137 mg/dL (70-99); Potassium 3.8 mmol/L (3.3-5.1); Sodium Level 134 mmol/L (133-145)
[2024-08-06] MEDS: Enoxaparin 40 MG/0.4 ML Syringe SC (11:24)
[2024-08-06] MEDS: Metoprolol(XL)Succ 50 MG Tablet PO (11:25)
[2024-08-06] MEDS: Pantoprazole Sodium 40 MG Tablet PO (11:25)
[2024-08-06] MEDS: Ceftriaxone 1 GM/50 ML BAG IV (11:26)
[2024-08-06] MEDS: Azithromycin 500 MG in 0.9% Normal Saline (250mL Bag) 250 ML 255 MG IV (12:37)
[2024-08-06] MEDS: Atorvastatin Calcium 20 MG Tablet PO (12:38)
--- NOTE | 2024-08-06 13:20 | PCM.PN.HOSP ---
Reason for Visit Reason for Visit: Diagnoses Pneumonia, unspecified organism (08/04/24) Chronic obstructive pulmonary disease with (acute) exacerbation (08/04/24) Acute respiratory failure with hypoxia (08/04/24) Subjective Subjective Saw patient at bedside this morning. Patient was slightly more fatigued and emotionally labile this morning than previous days. Nursing staff noted that she did not get much sleep last night and was emotionally labile overnight as well. She did have a stronger cough with sputum production this morning compared to previous days. She denied any fevers or chills. She noted that she had been planning to go on vacation prior to this admission and was upset about having to be in the hospital. No other new concerns this morning. Objective Data Objective Data Vital Signs: Vital Signs Temp Pulse Resp BP Pulse Ox O2 Del Method O2 Flow Rate 97.8 F 88 17 135/80 H 93 Nasal Cannula 2 08/06/24 11:22 08/06/24 11:25 08/06/24 11:22 08/06/24 11:22 08/06/24 11:22 08/06/24 11:22 08/06/24 11:22 Oxygen Flow Rate (L/min) 2 Oxygen Delivery Method Nasal Cannula Weight: 78.8 kg Body Mass Index (BMI) 33.9 Intake & Output: Intake and Output for Last 24 Hours 08/04/24 08/05/24 08/06/24 23:59 23:59 23:59 Intake Total 305 / 305 2004 370 / 370 Balance 305 / 305 2004 370 / 370 Lab / Micro Data 08/06/24 08:37 08/06/24 08:37 Labs: Laboratory Results - last 24 hr 08/06/24 08:37: WBC 13.8 H, RBC 3.73 L, Hgb 11.0 L, Hct 32.4 L, MCV 86.9, MCH 29.5, MCHC 34.0, RDW Std Deviation 46.6 H, RDW Coeff of Kisha 14.7 H, Plt Count 270, MPV 10.7, Sodium 134, Potassium 3.8, Chloride 98, Carbon Dioxide 23.7, Anion Gap 12, BUN 27 H, Creatinine 0.81, Estim Creat Clear Calc 59.15, Est GFR (MDRD) Non-Af 78, BUN/Creatinine Ratio 33.2 H, Glucose 137 H, Calcium 9.1 Micro: Microbiology 08/04/24 15:15 Mucosa - Nasopharyngeal Respiratory Panel (PCR) - Final 08/04/24 16:35 Urine, Clean Catch Legionella Antigen - Final 08/04/24 16:35 Urine, Clean Catch Streptococcus pneumoniae Antigen (M - Final 08/04/24 11:14 Mucosa - Nose SARS-CoV-2, Influenza & RSV (PCR) - Final Rhythm Strip Rhythm Strip: Sinus Tach Rate: 103 Ectopy: None Physical Exam Const alert, oriented x3 and no apparent distress Constitutional Narrative: Elderly female, class I obesity, more fatigued and emotionally labile with crying during our conversation noted today, otherwise sitting up comfortably in bed and conversing normally. General Appearance: cooperative and comfortable HEENT normocephalic, head/scalp atraumatic, hearing grossly normal bilaterally, nasal mucous membranes and turbinates normal and moist oral mucous membranes Eyes PERRL, EOMs intact bilaterally and conjunctivae normal Neck full ROM Chest inspection of chest normal Resp normal respiratory effort and no use of accessory muscles Resp Narrative: Breathing comfortably on 2 L nasal cannula at rest. Mildly decreased breath sounds bilaterally throughout with mild crackles noted in mid lung zones. No wheezing noted. Improving. Cardio regular rate, regular rhythm, no murmurs and peripheral pulses 2+ throughout GI normal to inspection, nondistended, normoactive bowel sounds, soft to palpation, non-tender and non-distended Back/Spine normal ROM Extremity normal to inspection, full ROM and no pedal edema Skin no rashes or lesions noted Psych mental status grossly normal Mood & Affect: anxious Assessment & Plan Assessment/Plan (1) Acute hypoxic respiratory failure: (2) Multifocal pneumonia: (3) COPD exacerbation: PLAN: Plan Patient is a 69-year-old female who presented to [facility] ED on 08/04/2024 with worsening shortness of breath and nonproductive cough. 1. Acute hypoxic respiratory failure suspected secondary to multifocal pneumonia and acute exacerbation of COPD ? Not on home oxygen, was requiring up to 10 L high flow nasal cannula on admit to maintain appropriate oxygen saturations. CTA chest showed findings most consistent with multifocal pneumonia plus or minus pulmonary edema. COVID/flu/RSV, respiratory PCR panel and urine antigens negative. Treated with IV steroids, IV antibiotics and scheduled DuoNebs on admission and patient has been improving. De-escalated to p.o. steroids on 08/06. BNP elevated at 5025 but echo on 08/05 showed EF 60%, mildly elevated pulmonary pressures but no RV changes, no other abnormalities. Continue to wean supplemental oxygen as able. Continue home long-acting inhaler. Hopeful for discharge home in the next 1 to 2 days. 2. Mild hyponatremia ? Sodium 132 on admit, chloride 95. Was unclear if due to dehydration versus mild volume overload on admit; gave 1 dose of IV Lasix and sodium and chloride mildly worsened, so IV fluids were given on 08/05 and sodium and chloride improved. Continue to monitor BMP daily. 3. Class I obesity with STEPHON ? BMI 33 on admit. Encouraged weight loss. Continue home CPAP at night. 4. Hypertension, hyperlipidemia ? Normotensive on admit. Continue home Toprol and atorvastatin. 5. Seasonal allergies ? Continue home loratadine and montelukast. 6. Emotional lability ? Patient noted on evening of 08/05 to be quite anxious and emotionally labile. Suspect that primary cause of this is the steroids she is receiving for COPD exacerbation as noted above. Will treat symptoms as needed. DVT prophylaxis: Lovenox CODE STATUS: Full code, verified Expected disposition: Home, 1 to 2 days Total clinical time spent by myself addressing the patient's medical issues, reviewing all the data, and collaborating with patient's care team: 35 minutes. Charges/Coding Visit Charges Inpatient E&M: 01805 Subs Hosp L2
[2024-08-06] MEDS: 0.9% Saline Lock 10 ML Syringe IV (20:53)
[2024-08-06] MEDS: Montelukast 10 MG Tablet PO (20:53)
[2024-08-06] MEDS: traZODone 50 MG Tablet PO (20:53)
[2024-08-06] MEDS: MELATONIN 3 MG TABLET PO (20:53)
[2024-08-07] VITALS (9 sets, daily range): BP systolic 120–156; BP diastolic 46–94; PULSE 70–98; RESP 14–20; TEMP 36.3–36.7; O2SAT 92–98
--- NOTE | 2024-08-07 00:02 | CPS ---
RT increased oxygen liter flow to 4L from 2L due to desaturation
[2024-08-07 05:54] LABS: Hematocrit 31.9 % (37-47); Hemoglobin 10.5 g/dL (12.0-15.0); Mean Corp Hgb Conc 32.9 g/dL (32-36); Mean Corpuscular Hgb 29.2 pg (27.0-32.0); Mean Corpuscular Volume 88.6 fL (81-99); Platelet Count 248 K/mm3 (150-450); RBC Distribution Width CV 14.9 % (11.6-14.6); RBC Distribution Width SD 48.1 fl (35.1-43.9); White Blood Count 10.5 K/mm3 (4.4-11.0)
[2024-08-07 06:21] LABS: Anion Gap 11 (5-15); BUN 21 mg/dL (4-19); Calcium,Total 8.9 mg/dL (7.6-11.0); Carbon Dioxide 23.3 mmol/L (21.0-32.0); Chloride 104 mmol/L (98-108); Creatinine, Serum 0.75 mg/dL (0.70-1.20); EST Glomerular Filtration Rate 85 (>60); Estimated Creatinine Clearance 59.89 ml/min (50-250); Glucose 119 mg/dL (70-99); Sodium Level 138 mmol/L (133-145)
[2024-08-07] MEDS: Ipratropium/Albuterol Sulfate 3 ML AMPUL.NEB INHALATION ×2 (06:45→13:03)
[2024-08-07] MEDS: Atorvastatin Calcium 20 MG Tablet PO (09:19)
[2024-08-07] MEDS: Multivitamins,Therapeutic Tablet 1 TABLET PO (09:21)
[2024-08-07] MEDS: Pantoprazole Sodium 40 MG Tablet PO (09:21)
[2024-08-07] MEDS: predniSONE 20 MG Tablet 40 MG PO (09:21)
[2024-08-07] MEDS: Enoxaparin 40 MG/0.4 ML Syringe SC (09:22)
[2024-08-07] MEDS: Metoprolol(XL)Succ 50 MG Tablet PO (09:23)
--- NOTE | 2024-08-07 09:35 | PN.HOSP_ITS ---
Reason for Visit Reason for Visit: Diagnoses Pneumonia, unspecified organism (08/04/24) Chronic obstructive pulmonary disease with (acute) exacerbation (08/04/24) Acute respiratory failure with hypoxia (08/04/24) Subjective Subjective Saw patient at bedside this morning. Patient had just woken up and was somewhat fatigued but she did appear improved today from yesterday. She has noted facial flushing noted and is emotionally more stable. Per nursing staff, patient had much better night last night than the previous night and slept well. Patient continues to report cough with sputum production, slowly improving. No other new concerns today. Objective Data Objective Data Vital Signs: Vital Signs Temp Pulse Resp BP Pulse Ox O2 Del Method O2 Flow Rate 98.0 F 80 18 120/66 94 Room Air 2 08/07/24 09:12 08/07/24 09:23 08/07/24 09:12 08/07/24 09:12 08/07/24 09:12 08/07/24 09:12 08/07/24 09:12 Oxygen Flow Rate (L/min) 2 Oxygen Delivery Method Room Air Weight: 78.8 kg Body Mass Index (BMI) 33.9 Intake & Output: Intake and Output for Last 24 Hours 08/05/24 08/06/24 08/07/24 23:59 23:59 23:59 Intake Total 2004 945 / 945 0 / 0 Balance 2004 945 / 945 0 / 0 Lab / Micro Data 08/07/24 04:47 08/07/24 04:47 Labs: Laboratory Results - last 24 hr 08/07/24 04:47: WBC 10.5, RBC 3.60 L, Hgb 10.5 L, Hct 31.9 L, MCV 88.6, MCH 29.2, MCHC 32.9, RDW Std Deviation 48.1 H, RDW Coeff of Kisha 14.9 H, Plt Count 248, MPV 11.0, Sodium 138, Potassium 4.0, Chloride 104, Carbon Dioxide 23.3, Anion Gap 11, BUN 21 H, Creatinine 0.75, Estim Creat Clear Calc 59.89, Est GFR (MDRD) Non-Af 85, BUN/Creatinine Ratio 28.0 H, Glucose 119 H, Calcium 8.9 Micro: Microbiology 08/04/24 15:15 Mucosa - Nasopharyngeal Respiratory Panel (PCR) - Final 08/04/24 16:35 Urine, Clean Catch Legionella Antigen - Final 08/04/24 16:35 Urine, Clean Catch Streptococcus pneumoniae Antigen (M - Final 08/04/24 11:14 Mucosa - Nose SARS-CoV-2, Influenza & RSV (PCR) - Final Rhythm Strip Rhythm Strip: Sinus Tach Rate: 103 Ectopy: None Physical Exam Const alert, oriented x3 and no apparent distress Constitutional Narrative: Elderly female, class I obesity, mildly fatigued but more emotionally stable then yesterday, sitting up comfortably in bed and conversing normally. General Appearance: cooperative and comfortable HEENT normocephalic, head/scalp atraumatic, hearing grossly normal bilaterally, nasal mucous membranes and turbinates normal and moist oral mucous membranes Eyes PERRL, EOMs intact bilaterally and conjunctivae normal Neck full ROM Chest inspection of chest normal Resp normal respiratory effort and no use of accessory muscles Resp Narrative: Breathing comfortably on 2 L nasal cannula at rest. Mild to moderately diminished breath sounds bilaterally throughout with mild crackles noted in mid lung zones. No wheezing noted. Slowly improving. Cardio regular rate, regular rhythm, no murmurs and peripheral pulses 2+ throughout GI normal to inspection, nondistended, normoactive bowel sounds, soft to palpation, non-tender and non-distended Back/Spine normal ROM Extremity normal to inspection, full ROM and no pedal edema Skin no rashes or lesions noted Psych mental status grossly normal Assessment & Plan Assessment/Plan (1) Acute hypoxic respiratory failure: (2) Multifocal pneumonia: (3) COPD exacerbation: PLAN: Plan Patient is a 69-year-old female who presented to [facility] ED on 08/04/2024 with worsening shortness of breath and nonproductive cough. 1. Acute hypoxic respiratory failure suspected secondary to multifocal pneumonia and acute exacerbation of COPD ? Not on home oxygen, was requiring up to 10 L high flow nasal cannula on admit to maintain appropriate oxygen saturations. CTA chest showed findings most consistent with multifocal pneumonia plus or minus pulmonary edema. COVID/flu/RSV, respiratory PCR panel and urine antigens negative. Treated with IV steroids, IV antibiotics and scheduled DuoNebs on admission and patient has been improving. De-escalated to p.o. steroids on 08/06. BNP elevated at 5025 but echo on 08/05 showed EF 60%, mildly elevated pulmonary pressures but no RV changes, no other abnormalities. Completed home O2 testing on 08/06 and required no oxygen at rest but still 3 L with exertion. Patient is improved from admission but continues to have mild to moderately diminished breath sounds bilaterally with mild crackles noted. Tomorrow will be day 5 of IV antibiotics and steroids; will complete repeat home O2 testing tomorrow in preparation for likely discharge home. Continue to wean supplemental oxygen as able. Continue home long-acting inhaler. 2. Mild hyponatremia ? Sodium 132 on admit, chloride 95. Was unclear if due to dehydration versus mild volume overload on admit; gave 1 dose of IV Lasix and sodium and chloride mildly worsened, so IV fluids were given on 08/05 and sodium and chloride improved. Continue to monitor BMP daily. 3. Class I obesity with STEPHON ? BMI 33 on admit. Encouraged weight loss. Continue home CPAP at night. 4. Hypertension, hyperlipidemia ? Normotensive on admit. Continue home Toprol and atorvastatin. 5. Seasonal allergies ? Continue home loratadine and montelukast. 6. Emotional lability ? Patient noted on evening of 08/05 to be quite anxious and emotionally labile. Suspect that primary cause of this is the steroids she is receiving for COPD exacerbation as noted above. Added trazodone at night on 08/06 and patient slept much better and was emotionally more stable on morning of 08/07. Continue to monitor. DVT prophylaxis: Lovenox CODE STATUS: Full code, verified Expected disposition: Home, 1 to 2 days Total clinical time spent by myself addressing the patient's medical issues, reviewing all the data, and collaborating with patient's care team: 35 minutes. Charges/Coding Visit Charges Inpatient E&M: 84270 Subs Hosp L2
[2024-08-07] MEDS: Ceftriaxone 1 GM/50 ML BAG IV (09:36)
[2024-08-07] MEDS: Azithromycin 500 MG in 0.9% Normal Saline (250mL Bag) 250 ML 255 MG IV (11:18)
[2024-08-07] MEDS: Montelukast 10 MG Tablet PO (21:34)
[2024-08-07] MEDS: traZODone 50 MG Tablet PO (21:34)
[2024-08-07] MEDS: MELATONIN 3 MG TABLET PO (21:34)
[2024-08-08 03:30] VITALS: BP 155/72; PULSE 73; RESP 18; TEMP 36.8; O2SAT 94
[2024-08-08 08:00] LABS: Hematocrit 32.9 % (37-47); Hemoglobin 10.7 g/dL (12.0-15.0); Mean Corp Hgb Conc 32.5 g/dL (32-36); Mean Corpuscular Volume 89.2 fL (81-99); Mean Platelet Vol. 10.6 fl (6.2-12.0); Platelet Count 270 K/mm3 (150-450); RBC Distribution Width CV 14.7 % (11.6-14.6); RBC Distribution Width SD 47.9 fl (35.1-43.9); Red Blood Count 3.69 M/mm3 (4.2-5.4)
--- NOTE | 2024-08-08 08:07 | DCINST_ITS ---
Discharge Instructions Diet Discharge Diet: Low fat / Low cholesterol DC O2, CPAP, BIPAP needs Home O2 Discharge instructions: Yes Type of respiratory needs?: Oxygen Oxygen frequency: At rest and With Ambulation Oxygen liters per minute during Ambulation: 3 Dressing / Incision Discharge Activity: Return to Normal Activity Weight Bearing Status: Weight bearing as tolerated Dressing / Incision Call your doctor if you observe: Fever of 101 or Higher, Coldness, Increased Pain, Numbness or Tingling, Change in Color, Inability to urinate, Inability to have a bowel movement, Shortness of breath, Dizziness, Fainting spells, Swelling in the ankles, Chest pain, Prolonged hiccupping, Increased palpitations (irregular heartbeat) and Calf discomfort Follow Up Care When: IN 2 WEEKS Test Results: Test results from this visit will be discussed in further detail at your follow- up appointment, if applicable. Discharge Plan Admission Admit Date/Time: 08/04/24 12:50 Attending Provider: Favian Cervantes Primary Care Provider: Eladio Mills Consulting Providers: Cr Treadwell Discharge Orders/Prescriptions Prescriptions: New cefdinir 300 mg capsule 300 mg PO BID 3 Days Qty: 6 0RF prednisone 20 mg tablet 40 mg PO DAILY 3 Days Qty: 6 0RF Continued multivitamin Tablet 1 tab PO DAILY atorvastatin 20 mg tablet 20 mg PO DAILY metoprolol succinate 50 mg tablet extended release 24 hr 50 mg PO DAILY loratadine 10 mg tablet 10 mg PO DAILY PRN (Reason: allergy symptoms) albuterol sulfate 90 mcg/actuation HFA aerosol inhaler 2 puff inhalation Q6H PRN (Reason: shortness of breath or wheezing) Qty: 8.5 2RF Trelegy Ellipta 100-62.5-25 mcg blister with device 1 inh inhalation DAILY Qty: 60 11RF nabumetone 500 mg tablet 500 mg PO BID PRN (Reason: pain) montelukast 10 mg tablet 10 mg PO QPM Qty: 30 11RF turmeric 400 mg capsule 400 mg PO DAILY Referrals / Follow Up: Eladio Mills DO [Primary Care Provider] - Freda Ye NP, AIRCRAFT STRESS ANALYST-C [Med Staff - Adv Practice Prof] - Within 2 Weeks Disposition Disposition (needs filled in before D/C Order can be placed): Home, Self Care
[2024-08-08 08:49] VITALS: BP 156/68; PULSE 78; RESP 16; TEMP 36.6; O2SAT 91
[2024-08-08] MEDS: Ceftriaxone 1 GM/50 ML BAG IV (08:53)
[2024-08-08 08:54] VITALS: PULSE 78
[2024-08-08] MEDS: Enoxaparin 40 MG/0.4 ML Syringe SC (08:54)
[2024-08-08] MEDS: Metoprolol(XL)Succ 50 MG Tablet PO (08:54)
[2024-08-08] MEDS: predniSONE 20 MG Tablet 40 MG PO (08:54)
[2024-08-08] MEDS: Atorvastatin Calcium 20 MG Tablet PO (08:54)
[2024-08-08] MEDS: Multivitamins,Therapeutic Tablet 1 TABLET PO (08:54)
[2024-08-08] MEDS: Pantoprazole Sodium 40 MG Tablet PO (08:54)
[2024-08-08 08:59] LABS: Anion Gap 10 (5-15); BUN 17 mg/dL (4-19); BUN/Creat Ratio 21.3 RATIO (10-20); Calcium,Total 8.9 mg/dL (7.6-11.0); Carbon Dioxide 25.7 mmol/L (21.0-32.0); Chloride 103 mmol/L (98-108); Creatinine, Serum 0.78 mg/dL (0.70-1.20); EST Glomerular Filtration Rate 81 (>60); Estimated Creatinine Clearance 59.89 ml/min (50-250); Glucose 111 mg/dL (70-99); Potassium 3.8 mmol/L (3.3-5.1); Sodium Level 139 mmol/L (133-145)
[2024-08-08 09:49] VITALS: O2SAT 80; O2SAT 81; O2SAT 90; O2SAT 94
--- NOTE | 2024-08-08 10:10 | PCM.DC.SUM ---
Providers Date of Admission: 08/04/24 Date of Discharge: 08/08/24 Primary Care Physician: Dr. Eladio Mills, Reason For Visit: ACUTE ON CHRONIC HYPOXIC RESP FAILURE Diagnosis Discharge Diagnosis (1) Acute hypoxic respiratory failure: Status: Acute Code(s): J96.01 - Acute respiratory failure with hypoxia (2) Multifocal pneumonia: Status: Acute Code(s): J18.9 - Pneumonia, unspecified organism (3) COPD exacerbation: Status: Chronic Code(s): J44.1 - Chronic obstructive pulmonary disease with (acute) exacerbation Plan Patient is a 69-year-old female who presented to [facility] ED on 08/04/2024 with worsening shortness of breath and nonproductive cough. 1. Acute hypoxic respiratory failure suspected secondary to multifocal pneumonia and acute exacerbation of COPD: Patient not on home oxygen but was requiring up to 10 L high flow nasal cannula on admit to maintain appropriate oxygen saturations. CTA chest showed findings most consistent with multifocal pneumonia plus or minus pulmonary edema. COVID/flu/RSV, respiratory PCR panel and urine antigens negative. Treated with IV steroids, IV antibiotics and scheduled DuoNebs on admission and patient has been improving. De-escalated to p.o. steroids on 08/06. BNP elevated at 5025 but echo on 08/05 showed EF 60%, mildly elevated pulmonary pressures but no RV changes, no other abnormalities. Home oxygen qualification test shows patient needs 2 L at rest and 3 L on ambulation. Patient and she did not want to use oxygen but recommended. She completed 5 days of IV antibiotic discharged on 3 more days of cefdinir. Discharged on prednisone for 3 more days and Mucinex DM. Patient has Trelegy at home. Follow-up with pulmonary clinic in 2 weeks 2. Mild hyponatremia ? Sodium 132 on admit, chloride 95. Improved to 139. Hyponatremia resolved 3. Class I obesity with STEPHON ? BMI 33 on admit. Encouraged weight loss. Continue home CPAP at night. 4. Hypertension, hyperlipidemia ? Normotensive on admit. Continue home Toprol and atorvastatin. 5. Seasonal allergies ? Continue home loratadine and montelukast. 6. Emotional lability, probably mild depression: Patient was on trazodone in the hospital DVT prophylaxis: Lovenox CODE STATUS: Full code, verified Discharge medication reconciliation done. Discharge follow-up instructions completed. Discharge process discussed with the patient and all questions were answered to patient's satisfaction. Follow with PCP in 1 to 2 weeks Total time spent, exact 35 minutes on discharge meds reconciliation, examination, coordination of care with nurses and ancillary staff, review of imaging and blood test and discussion with the patient on follow-up instructions. Medications at Discharge Home Medications atorvastatin 20 mg tablet 20 mg PO DAILY 01/22/21 multivitamin 1 tab PO DAILY 01/22/21 metoprolol succinate 50 mg tablet,extended release 24 hr 50 mg PO DAILY 06/10/21 loratadine 10 mg tablet 10 mg PO DAILY PRN allergy symptoms 10/14/21 albuterol sulfate 90 mcg/actuation aerosol inhaler 2 puff inhalation Q6H PRN shortness of breath or wheezing #8.5 grams 03/04/24 fluticasone fur. 100 mcg-umeclid 62.5 mcg-vilant 25 mcg inhalat.powder (Trelegy Ellipta) 1 inh inhalation DAILY #60 ea 03/04/24 montelukast 10 mg tablet 10 mg PO QPM #30 tabs 05/24/24 nabumetone 500 mg tablet 500 mg PO BID PRN pain 05/24/24 turmeric 400 mg capsule 400 mg PO DAILY 08/04/24 cefdinir 300 mg capsule 300 mg PO BID 3 days #6 caps 08/08/24 dextromethorphan-guaifenesin ER 60 mg-1,200 mg tab,extend release,12hr (Mucinex DM) 1 tab PO Q12H 7 days #14 tabs 08/08/24 prednisone 20 mg tablet 40 mg (2 x 20 mg) PO DAILY 3 days #6 tabs 08/08/24 Physical Exam Narrative seen and examined Overall patient shortness of breath has improved. Still has mild cough and not able to bring up phlegm. Physical exam General: Alert, Oriented x3, Cooperative HEENT: Atraumatic, PERRLA, EOMI, Normocephalic. Oral: No Gingival or Mucosal Lesions/ Ulcerations Neck: Supple, No JVD, Negative Carotid Bruits Chest wall/Lungs: Air entry diminished in bilateral lung bases. Mild expiratory wheezing on lung bases. Cardiovascular: Regular rate and rhythm, Normal S1,S2, No M/G/R Abdomen: Bowel Sounds Present, Soft, Non Tender, Non-Distended : No dysuria. No renal angle tenderness. No suprapubic tenderness. Extremities: No edema, Capillary Refill Less than 3 Seconds Skin: No rashes, No breakdown Musculoskeletal: No Tenderness to Palpation of Joints or Extremities Neurological: Cranial nerves II-XII grossly intact, DTR 2+/4. No acute focal neurological deficit. Psych/Mental Status: Normal Affect, Appropriate. Weight / BMI Weight Weight: 173 lb 11.588 oz Body Mass Index (BMI) 33.9 ABG / Lab / Microbiology Data 08/08/24 06:56 08/08/24 06:51 Laboratory: Laboratory Results - last 24 hr 08/08/24 06:51: Sodium 139, Potassium 3.8, Chloride 103, Carbon Dioxide 25.7, Anion Gap 10, BUN 17, Creatinine 0.78, Estim Creat Clear Calc 59.89, Est GFR (MDRD) Non-Af 81, BUN/Creatinine Ratio 21.3 H, Glucose 111 H, Calcium 8.9 08/08/24 06:56: WBC 9.0, RBC 3.69 L, Hgb 10.7 L, Hct 32.9 L, MCV 89.2, MCH 29.0, MCHC 32.5, RDW Std Deviation 47.9 H, RDW Coeff of Kisha 14.7 H, Plt Count 270, MPV 10.6 Microbiology: Microbiology 08/04/24 15:15 Mucosa - Nasopharyngeal Respiratory Panel (PCR) - Final 08/04/24 16:35 Urine, Clean Catch Legionella Antigen - Final 08/04/24 16:35 Urine, Clean Catch Streptococcus pneumoniae Antigen (M - Final 08/04/24 11:14 Mucosa - Nose SARS-CoV-2, Influenza & RSV (PCR) - Final D/C Instructions Discharge Diet: Low fat / Low cholesterol Weight Bearing Status: Weight bearing as tolerated Call your doctor if you observe: Fever of 101 or Higher, Coldness, Increased Pain, Numbness or Tingling, Change in Color, Inability to urinate, Inability to have a bowel movement, Shortness of breath, Dizziness, Fainting spells, Swelling in the ankles, Chest pain, Prolonged hiccupping, Increased palpitations (irregular heartbeat) and Calf discomfort DC O2, CPAP, BIPAP Needs Home O2 Discharge instructions: Yes Type of respiratory needs?: Oxygen Oxygen frequency: At rest and With Ambulation Oxygen liters per minute during Ambulation: 3 DC home with Oxygen: Yes Home O2 MD Review: I have reviewed the oxygen testing, and the patient qualifies for home oxygen equipment and portability. The patient is mobile in the home and the community. When: IN 2 WEEKS Meaningful Use Info Meaningful Use Meaningful Use Diagnoses (Choose all that apply): None applicable Ischemic Stroke Statin Dosing Therapy Reference: STATIN DOSE THERAPY REFERENCE: * Patients > 75 years receive moderate or high dose statin therapy. * Patients 75 years or YOUNGER should receive HIGH intensity statin dose unless contraindicated. You will be required to document reason for non-treatment if statin daily dose does not meet guidelines. HIGH DOSE STATIN THERAPY DAILY Atorvastatin > than or = to 40 mg Rosuvastatin > than or = to 20 mg Amlodipine + Atorvastatin > than or = to 2.5/40 mg Ezetimibe + Simvastatin 10/80 mg Simvastatin 80mg Discharge Plan Admission Admit Date/Time: 08/04/24 12:50 Primary Reason for Your Visit: COPD exacerbation from pneumonia Attending Provider: Favian Cervantes Primary Care Provider: Eladio Mills Consulting Providers: Cr Treadwell Discharge Orders/Prescriptions Prescriptions: New cefdinir 300 mg capsule 300 mg PO BID 3 Days Qty: 6 0RF prednisone 20 mg tablet 40 mg PO DAILY 3 Days Qty: 6 0RF dextromethorphan-guaifenesin [Mucinex DM] 60-1,200 mg tablet extended release 12 hr 1 tab PO Q12H 7 Days Qty: 14 0RF Continued multivitamin Tablet 1 tab PO DAILY atorvastatin 20 mg tablet 20 mg PO DAILY metoprolol succinate 50 mg tablet extended release 24 hr 50 mg PO DAILY loratadine 10 mg tablet 10 mg PO DAILY PRN (Reason: allergy symptoms) albuterol sulfate 90 mcg/actuation HFA aerosol inhaler 2 puff inhalation Q6H PRN (Reason: shortness of breath or wheezing) Qty: 8.5 2RF Trelegy Ellipta 100-62.5-25 mcg blister with device 1 inh inhalation DAILY Qty: 60 11RF nabumetone 500 mg tablet 500 mg PO BID PRN (Reason: pain) montelukast 10 mg tablet 10 mg PO QPM Qty: 30 11RF turmeric 400 mg capsule 400 mg PO DAILY Referrals / Follow Up: Eladio Mills DO [Primary Care Provider] - Freda Ye CABIN OUTFITTER, CABIN OUTFITTER-C [Med Staff - Adv Practice Prof] - Within 2 Weeks Disposition Disposition (needs filled in before D/C Order can be placed): Home, Self Care Charges/Coding Visit Charges Inpatient E&M: 33366 Disch Hosp >30min
--- NOTE | 2024-08-08 11:14 | PHA.DC_ITS ---
Pharmacy [facility] has performed discharge medication reconciliation and counseling for this patient. 1. Cefdinir 300mg PO BID x 3 days 2. Mucinex DM 60/1200mg 1T PO BID x 7 days 3. Prednisone 40mg PO daily x 3 days The patient's discharge medication list was reviewed for discrepancies and discrepancies were resolved. The patient was counseled on the following discharge medications and changes in medications for homegoing were reviewed. The Reason for Use, instructions for use, and potential side effects were reviewed for all new medications. The patient's questions regarding all of their medications were answered. The patient was able to verbally demonstrate an understanding of their discharge medications. Medications at Discharge Home Medications atorvastatin 20 mg tablet 20 mg PO DAILY 01/22/21 multivitamin 1 tab PO DAILY 01/22/21 metoprolol succinate 50 mg tablet,extended release 24 hr 50 mg PO DAILY 06/10/21 loratadine 10 mg tablet 10 mg PO DAILY PRN allergy symptoms 10/14/21 albuterol sulfate 90 mcg/actuation aerosol inhaler 2 puff inhalation Q6H PRN shortness of breath or wheezing #8.5 grams 03/04/24 fluticasone fur. 100 mcg-umeclid 62.5 mcg-vilant 25 mcg inhalat.powder (Trelegy Ellipta) 1 inh inhalation DAILY #60 ea 03/04/24 montelukast 10 mg tablet 10 mg PO QPM #30 tabs 05/24/24 nabumetone 500 mg tablet 500 mg PO BID PRN pain 05/24/24 turmeric 400 mg capsule 400 mg PO DAILY 08/04/24 cefdinir 300 mg capsule 300 mg PO BID 3 days #6 caps 08/08/24 dextromethorphan-guaifenesin ER 60 mg-1,200 mg tab,extend release,12hr (Mucinex DM) 1 tab PO Q12H 7 days #14 tabs 08/08/24 prednisone 20 mg tablet 40 mg (2 x 20 mg) PO DAILY 3 days #6 tabs 08/08/24
--- NOTE | 2024-08-08 11:28 | CASEMGMT ---
Patient has order for discharge. Patient requires oxygen at discharge. ALAYNA LANDON in to discuss needs at discharge. Per patient and they travel and stay in [place], [place] during the summer and would prefer DME that is in both [place] and [place]. Per [employer] website, no offices in [place]. [facility] has office in [place], [place]. ALAYNA LANDON updated patient and and prefer oxygen be setup with [facility]. Patient and deny further needs or concerns. ALAYNA LANDON received script and referral sent to [facility] with arrangement for tank to be delivered to hospital. ALAYNA LANDON updated discharge plan.
== END 2024-08-08 15:03 | disposition home or self-care (01) | DRG 193 ==
LOC: ED 13:08 → PCU 13:14
PROVIDERS: Admitting Provider Hospitalist; Emergency Provider Emergency Medicine; PCP Family Medicine; Visit Provider Internal Medicine
DX: J18.9 Pneumonia, unspecified organism (principal); J96.01 Acute respiratory failure with hypoxia; J44.1 Chronic obstructive pulmonary disease with (acute) exacerbation; E87.1 Hypo-osmolality and hyponatremia; J44.0 Chronic obstructive pulmonary disease with (acute) lower respiratory infection; I10 Essential (primary) hypertension; F32.A Depression, unspecified; Z68.33 Body mass index [BMI] 33.0-33.9, adult; J30.2 Other seasonal allergic rhinitis; G47.33 Obstructive sleep apnea (adult) (pediatric); E78.00 Pure hypercholesterolemia, unspecified; Z11.52 Encounter for screening for COVID-19; Z82.49 Family history of ischemic heart disease and other diseases of the circulatory system; E66.811 Obesity, class 1; Z87.891 Personal history of nicotine dependence; Z82.5 Family history of asthma and other chronic lower respiratory diseases; Z79.51 Long term (current) use of inhaled steroids; Z79.1 Long term (current) use of non-steroidal anti-inflammatories (NSAID); R53.81 Other malaise; Z99.89 Dependence on other enabling machines and devices
CPT/HCPCS: 36415; 36600; 71046; 71275; 80048; 82803; 83880; 84484; 85025; 85027; 87449; 87631; 87633; 93005; 93306; 94640; 94668; 97162; 99285; Q9957; Q9967; A4216; J1940

== ENCOUNTER → 2024-08-25 | Outpatient (CLI) | payer MEDICARE, BC, SELFPAY ==
[2024-08-25 12:34] LABS: Anion Gap 11 (5-15); BUN 7 mg/dL (4-19); BUN/Creat Ratio 8.7 RATIO (10-20); Calcium,Total 9.6 mg/dL (7.6-11.0); Carbon Dioxide 23.8 mmol/L (21.0-32.0); Chloride 102 mmol/L (98-108); Creatinine, Serum 0.84 mg/dL (0.70-1.20); EST Glomerular Filtration Rate 74 (>60); Glucose 110 mg/dL (70-99); Potassium 4.4 mmol/L (3.3-5.1); Pro- Brain NATRIURETIC PEPTIDE 146 pg/mL (<=900); Sodium Level 137 mmol/L (133-145)
== END | disposition home or self-care (01) ==
LOC: PAVLAB 11:45
PROVIDERS: PCP Family Medicine; Referring Provider Nurse Practitioner Acute Care; Visit Provider Nurse Practitioner Acute Care
DX: R06.02 Shortness of breath (principal); I50.30 Unspecified diastolic (congestive) heart failure
CPT/HCPCS: 36415; 80048; 83880

== ENCOUNTER → 2024-10-06 | Outpatient (CLI) | payer MEDICARE, BC, SELFPAY ==
[2024-10-06 16:50] LABS: Pro- Brain NATRIURETIC PEPTIDE 139 pg/mL (<=900)
[2024-10-06 17:40] LABS: CRP 9.98 mg/L (0.0-3.0)
== END | disposition home or self-care (01) ==
LOC: LAB 15:23
PROVIDERS: PCP Family Medicine; Referring Provider Internal Medicine Cardiovascular Disease; Visit Provider Internal Medicine Cardiovascular Disease
DX: M06.09 Rheumatoid arthritis without rheumatoid factor, multiple sites (principal); I50.30 Unspecified diastolic (congestive) heart failure
CPT/HCPCS: 36415; 83880; 85652; 86140

== ENCOUNTER → 2024-10-18 | Outpatient (CLI) | payer MEDICARE, BC, SELFPAY ==
--- NOTE | 2024-10-18 13:01 | VDLE_ITS ---
Reason For Study Reason For Study: SWELLING RIGHT LEFT GSV is normal. GSV is normal. CFV is compressible, spontaneous, phasic, competent CFV is compressible, spontaneous, phasic, competent, and demonstrates normal augmentation. and demonstrates normal augmentation. FV is compressible, spontaneous, phasic, competent FV is compressible, spontaneous, phasic, competent and demonstrates normal augmentation. and demonstrates normal augmentation. POP V is compressible, spontaneous, phasic, competent POP V is compressible, spontaneous, phasic, competent and demonstrates normal augmentation. and demonstrates normal augmentation. T/P Trunk is compressible. T/P Trunk is compressible. PTV is compressible. PTV is compressible. RT PerV is compressible. LT PerV is compressible. Procedure This is a venous duplex using B-mode, color flow and spectral Doppler. Exam performed in department. A preliminary report was called and/or faxed to Dr. Vital @ [phone] @13:30. VL/Venous Duplex US - Lang Extrem Interpretation Summary Deep veins of the bilateral lower extremities are patent and compressible segme ntally. There is no evidence of bilateral lower extremity deep vein thrombosis. The bilateral great saphenous veins appea r patent and compressible segmentally. Ordering Physician: Senthil Vital Referring Physician: Eladio Mills Performed By: Payal Martinez, KARLO, RVT
--- NOTE | 2024-10-18 13:01 | VDLE_ITS ---
Reason For Study Reason For Study: SWELLING RIGHT LEFT GSV is normal. GSV is normal. CFV is compressible, spontaneous, phasic, competent CFV is compressible, spontaneous, phasic, competent, and demonstrates normal augmentation. and demonstrates normal augmentation. FV is compressible, spontaneous, phasic, competent FV is compressible, spontaneous, phasic, competent and demonstrates normal augmentation. and demonstrates normal augmentation. POP V is compressible, spontaneous, phasic, competent POP V is compressible, spontaneous, phasic, competent and demonstrates normal augmentation. and demonstrates normal augmentation. T/P Trunk is compressible. T/P Trunk is compressible. PTV is compressible. PTV is compressible. RT PerV is compressible. LT PerV is compressible. Procedure This is a venous duplex using B-mode, color flow and spectral Doppler. Exam performed in department. A preliminary report was called and/or faxed to Dr. Vital @ [phone] @13:30. VL/Venous Duplex US - Lang Extrem Interpretation Summary Deep veins of the bilateral lower extremities are patent and compressible segme ntally. There is no evidence of bilateral lower extremity deep vein thrombosis. The bilateral great saphenous veins appea r patent and compressible segmentally. Ordering Physician: Senthil Vital Referring Physician: Eladio Mills Performed By: Payal Martinez, KARLO, RVT
== END | disposition home or self-care (01) ==
LOC: CVS 13:01
PROVIDERS: PCP Family Medicine; Referring Provider Internal Medicine Cardiovascular Disease; Visit Provider Internal Medicine Cardiovascular Disease
DX: M79.89 Other specified soft tissue disorders (principal); M79.606 Pain in leg, unspecified
CPT/HCPCS: 93970